=== PATIENT | female | born 1970 | race Caucasian/White ===

== ENCOUNTER 2016-07-31 18:14 | Emergency (ER) | payer BC, OTHER ==
[2016-07-31] MEDS ORDERED: PENICILLIN G BENZATHINE 600,000 UNIT/ML SYRINGE IM STA (19:37)
== END 2016-07-31 20:10 | disposition home or self-care (01) ==
DX: J02.9 Acute pharyngitis, unspecified (principal); J45.909 Unspecified asthma, uncomplicated; F17.200 Nicotine dependence, unspecified, uncomplicated; I11.0 Hypertensive heart disease with heart failure; I50.9 Heart failure, unspecified; E11.9 Type 2 diabetes mellitus without complications

== ENCOUNTER 2016-08-08 09:26 | Emergency (ER) | payer BC, OTHER ==
[2016-08-08] MEDS ORDERED: HYDROmorphone 1 MG/ML SYRINGE IM STA ×2 (10:21→11:56)
[2016-08-08] MEDS ORDERED: KETOROLAC 30 MG/ML VIAL IM STA (10:22)
[2016-08-08] MEDS ORDERED: DEXAMETHASONE 10 MG/ML VIAL PO STA (10:22)
[2016-08-08] MEDS ORDERED: ALBUTEROL NEB 2.5 MG/3 ML INH STA (10:22)
[2016-08-08] MEDS ORDERED: PROMETHAZINE 25 MG/1 ML VIAL IM STA ×2 (10:22→11:56)
[2016-08-08] MEDS ORDERED: HYDROmorphone 1 MG/ML SYRINGE ONE ×2 (10:28→12:04)
[2016-08-08] MEDS ORDERED: DEXAMETHASONE 10 MG/ML VIAL ONE (10:28)
[2016-08-08] MEDS ORDERED: CHERRY SYRUP 10 ML UDC PO ONE (10:28)
[2016-08-08] MEDS ORDERED: PROMETHAZINE 25 MG/1 ML VIAL ONE ×2 (10:28→12:04)
[2016-08-08] MEDS ORDERED: KETOROLAC 30 MG/ML VIAL ONE (10:28)
[2016-08-08] MEDS ORDERED: ALBUTEROL NEB 2.5 MG/3 ML INH ONE (10:31)
[2016-08-08] MEDS ORDERED: CEPHALEXIN 250 MG CAPSULE PO STA (11:32)
[2016-08-08] MEDS ORDERED: CEPHALEXIN 250 MG CAPSULE PO ONE (11:35)
[2016-08-08] MEDS ORDERED: ONDANSETRON ODT 4 MG TABLET TL STA (11:56)
[2016-08-08] MEDS ORDERED: MAG HYDROX/AL HYDROX/SIMETH 30 ML UDC PO STA (11:56)
[2016-08-08] MEDS ORDERED: ONDANSETRON ODT 4 MG TABLET ONE (12:04)
[2016-08-08] MEDS ORDERED: MAG HYDROX/AL HYDROX/SIMETH 30 ML UDC ONE (12:04)
[2016-08-08] MEDS ORDERED: HYDROcod/ACETAM 5/325 MG TABLET PO STA (12:47)
[2016-08-08] MEDS ORDERED: HYDROcod/ACETAM 5/325 MG TABLET ONE (13:09)
== END 2016-08-08 13:15 | disposition home or self-care (01) ==
DX: J02.0 Streptococcal pharyngitis (principal); J06.9 Acute upper respiratory infection, unspecified; M79.1 Myalgia; R10.30 Lower abdominal pain, unspecified; E11.9 Type 2 diabetes mellitus without complications; J45.909 Unspecified asthma, uncomplicated; F17.200 Nicotine dependence, unspecified, uncomplicated
CPT/HCPCS: 94640; 96372; 99283; 99284; A9270; J1170; J7613; Q0162

== ENCOUNTER 2016-08-15 | Outpatient (CLI) | payer BC, OTHER | END 2016-08-15 12:26 | disposition critical access hospital (66) | CPT/HCPCS: A0425; A0429 ==

== ENCOUNTER 2016-08-15 12:39 | Emergency (ER) | payer BC, OTHER ==
[2016-08-15] MEDS ORDERED: KETOROLAC 60 MG/2 ML VIAL IVP STA (12:45)
[2016-08-15] MEDS ORDERED: IPRATROPIUM/ALBUTEROL 3 ML NEB INH STA (12:45)
[2016-08-15] MEDS ORDERED: IPRATROPIUM/ALBUTEROL 3 ML NEB INH ONE (12:54)
[2016-08-15] MEDS ORDERED: KETOROLAC 30 MG/ML VIAL ONE (13:15)
== END 2016-08-15 14:07 | disposition home or self-care (01) ==
DX: J02.9 Acute pharyngitis, unspecified (principal); B34.9 Viral infection, unspecified; R03.0 Elevated blood-pressure reading, without diagnosis of hypertension; J45.909 Unspecified asthma, uncomplicated; F17.200 Nicotine dependence, unspecified, uncomplicated; C94.6 Myelodysplastic disease, not elsewhere classified; E11.9 Type 2 diabetes mellitus without complications
CPT/HCPCS: 36415; 80053; 81003; 83690; 85025; 87070; 87430; 94640; 96374; 99283; J7620

== ENCOUNTER 2016-08-16 01:26 | Emergency (ER) | payer BC, OTHER ==
[2016-08-16] MEDS ORDERED: HYDROmorphone 1 MG/ML SYRINGE IVP STA ×2 (02:08→03:45)
[2016-08-16] MEDS ORDERED: SODIUM CHLORIDE 0.9% 1,000 ML IV STA (02:08)
[2016-08-16] MEDS ORDERED: HYDROmorphone 1 MG/ML SYRINGE ONE ×2 (02:27→03:44)
[2016-08-16] MEDS ORDERED: ONDANSETRON 4 MG/2 ML VIAL ONE (02:51)
[2016-08-16] MEDS ORDERED: ONDANSETRON 4 MG/2 ML VIAL IVP STA (02:58)
[2016-08-16] MEDS ORDERED: IOPAMIDOL-300 100 ML VIAL IVP ONE (03:21)
== END 2016-08-16 04:20 | disposition home or self-care (01) ==
DX: K92.1 Melena (principal); R10.9 Unspecified abdominal pain; E11.9 Type 2 diabetes mellitus without complications; F17.200 Nicotine dependence, unspecified, uncomplicated
CPT/HCPCS: 36415; 74177; 80053; 82150; 83690; 85025; 85610; 85730; 96361; 96374; 96375; 96376; 99284; J1170; Q9967

== ENCOUNTER 2016-11-08 08:22 | Emergency (ER) | payer BC, OTHER ==
[2016-11-08] MEDS ORDERED: KETOROLAC 60 MG/2 ML VIAL IVP STA (09:02)
[2016-11-08] MEDS ORDERED: SODIUM CHLORIDE 0.9% 1,000 ML IV ONE (09:02)
[2016-11-08] MEDS ORDERED: DEXAMETHASONE 10 MG/ML VIAL IVP STA (09:02)
[2016-11-08] MEDS ORDERED: DEXAMETHASONE 10 MG/ML VIAL ONE (09:11)
[2016-11-08] MEDS ORDERED: KETOROLAC 30 MG/ML VIAL ONE (09:11)
[2016-11-08] MEDS ORDERED: CHERRY SYRUP 10 ML UDC PO ONE (09:11)
[2016-11-08] MEDS ORDERED: ONDANSETRON 4 MG/2 ML VIAL IVP STA (11:00)
[2016-11-08] MEDS ORDERED: ONDANSETRON 4 MG/2 ML VIAL ONE (11:01)
== END 2016-11-08 12:17 | disposition home or self-care (01) ==
DX: S39.011A Strain of muscle, fascia and tendon of abdomen, initial encounter (principal); X50.0XXA Overexertion from strenuous movement or load, initial encounter; H66.001 Acute suppurative otitis media without spontaneous rupture of ear drum, right ear; I50.9 Heart failure, unspecified; J45.909 Unspecified asthma, uncomplicated; E11.9 Type 2 diabetes mellitus without complications; K21.9 Gastro-esophageal reflux disease without esophagitis; F17.200 Nicotine dependence, unspecified, uncomplicated
CPT/HCPCS: 36415; 71020; 80053; 81003; 83690; 83880; 84484; 85025; 96374; 96375; 99283; 99284; A9270

== ENCOUNTER 2017-03-23 21:44 | Emergency (ER) | payer BC, OTHER ==
[2017-03-23] MEDS ORDERED: IPRATROPIUM/ALBUTEROL 3 ML NEB INH STA (22:07)
[2017-03-23] MEDS ORDERED: IPRATROPIUM/ALBUTEROL 3 ML NEB INH ONE (22:16)
--- NOTE | 2017-03-23 22:52 | ED Physician Documentation ---
PD HPI DYSPNEA - Stated complaint Stated Complaint: SOA - Chief complaint Chief Complaint: Resp - History obtained from History obtained from: Patient - History of Present Illness Timing - onset: How many days ago (3 or 4 days.) Timing - details: Waxing and waning Improved by: Inhaler/neb Worsened by: Coughing Associated symptoms: Cough (Scant sputum), Chest pain / discomfort (soreness). No: Fever Similar symptoms before: Diagnosis (Asthma/COPD) - Treatment prior to arrival Treatment prior to arrival: Albuterol inhaler with only minimal improvement. - Additional information Additional information: The patient is a 47-year-old female with history of asthma/COPD, who presents with shortness of breath that has been waxing and waning for the past 3 or 4 days. She reports cough that is productive of scant sputum. She denies fever, nausea or vomiting. She has been using albuterol inhaler with minimal temporary improvement. She reports an associated aching in her chest. She has a history of similar symptoms in the past. She continues to smoke cigarettes as well as marijuana. In addition to albuterol her medications include Singulair and Mireya. Review of Systems Constitutional: denies: Fever Ears: denies: Tinnitus/ringing Nose: denies: Congestion Throat: denies: Sore throat Cardiac: reports: Chest pain / pressure (Discomfort/tightness.). 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 : None HEENT: None Psych: None Musculoskeletal: Other Derm: None - Past Surgical History Past Surgical History: Yes General: Cholecystectomy /CARD SCRAPER: section, Hysterectomy HEENT: Tonsil/Adenoidectomy - Present Medications Home Medications: Ambulatory Orders Medication Instructions Recorded Confirmed Medical Marijuana PRN 05/05/15 09/14/15 Albuterol Sulfate [Proair Hfa 2 puffs IH QID #1 hfa.aer.ad 08/08/16 08/16/16 Inhaler] Azithromycin [Zithromax] 250 mg PO DAILY #6 tablet 11/08/16 HYDROcod/ACETAM 5/325 [[place] 5/325] 1 - 2 ea PO Q6H PRN #15 tablet 11/08/16 Prednisone 30 mg PO DAILY #15 tablet 03/24/17 - Allergies Allergies/Adverse Reactions: Allergies Allergy/AdvReac Type Severity Reaction Status Date / Time No Known Drug Allergies Allergy Verified 08/16/16 01:32 - Social History Does the pt smoke?: Yes Smoking Status: Current every day smoker Does the pt drink ETOH?: No Does the pt have substance abuse?: No Substance Use and Type: Marijuana - Immunizations Immunizations are current?: Yes - POLST Patient has POLST: No PD ED PE NORMAL - Vitals Vital signs reviewed: Yes (Mild hypertension initially.) - General General: Alert and oriented X 3, Other (Overweight) - HEENT HEENT: Atraumatic, Moist mucous membranes, Pharynx benign - Neck Neck: No adenopathy, No JVD - Cardiac Cardiac: RRR, No murmur - Respiratory Respiratory: Other (Faint expiratory wheezes bilaterally.) - Abdomen Abdomen: Soft, Non tender - Back Back: No CVA TTP - Derm Derm: No rash - Extremities Extremities: No edema, No calf tenderness / cord - Neuro Neuro: Alert and oriented X 3, No motor deficit, Normal speech Results - Vitals Vitals: Vital Signs - 24 hr 03/23/17 03/23/17 03/23/17 21:50 22:15 22:20 Temperature 36.9 C 37.0 C Heart Rate 101 H 87 88 Respiratory 24 16 16 Rate Blood Pressure 142/93 H 116/79 O2 Saturation 96 96 03/23/17 03/23/17 03/24/17 22:42 23:36 00:22 Temperature 36.9 C Heart Rate 87 83 71 Respiratory 22 16 16 Rate Blood Pressure 120/68 122/72 O2 Saturation 96 96 03/24/17 01:09 Temperature 36.9 C Heart Rate 88 Respiratory 14 Rate Blood Pressure 116/63 O2 Saturation 95 Oxygen O2 Source Room air - EKG (time done) 22:42 Rate: Rate (enter#) (82) Rhythm: NSR Intervals: RBBB QRS: LVH Ischemia: No: ST elevation c/w ischemia Compare to prior EKG: Unchanged from prior EKG Computer interpretation: Agree with computer - Rads (name of study) 2-view CXR Radiology: Prelim report reviewed, EMP read contemporaneously, See rad report ( Negative chest.) PD MEDICAL DECISION MAKING - ED course Complexity details: reviewed old records, reviewed results, re-evaluated patient , considered differential, d/w patient, d/w family ED course: The patient's presentation is most consistent with acute exacerbation of COPD/ asthma. Chest x-ray reveals no evidence of pneumonia, and I doubt pulmonary embolus. Her presentation does not suggest congestive heart failure or myocardial ischemia. Treatment in the emergency department included administration of DuoNeb nebulizer. Her symptoms only minimally improved, and she continued to have faint expiratory wheezes. Xopenex nebulizer treatment and oral dexamethasone 10 mg were administered. Percocet 1 tablet was administered orally. The patient's symptoms did improve with the above treatment, and on reevaluation and her wheezing has resolved. She is being discharged with prescription for prednisone. She has albuterol inhaler and spacer device at home. I do not think antibiotics are clinically indicated, and discussed this with her. I discussed with her and her family the expected course of illness, symptomatic treatment and outpatient follow-up, as well as potentially worrisome signs or symptoms that should prompt reevaluation in the emergency department. I also discussed with her the importance of smoking cessation. Departure - Departure Disposition: 01 Home, Self Care Clinical Impression: COPD with acute exacerbation Condition: Stable Instructions: ED COPD Flare Follow-Up: [facility] [Provider Group] Prescriptions: Prednisone 30 mg PO DAILY #15 tablet Comments: Try to stop smoking cigarettes. Continue your albuterol inhaler as previously prescribed. Take prednisone daily for the next 5 days as prescribed. Follow-up with your primary physician within 1 week. Call to schedule an appointment. Return to the emergency department if you develop increasing difficulty breathing, or otherwise worsening symptoms. Discharge Date/Time: 03/24/17 01:13
--- NOTE | 2017-03-23 23:11 | XRAY Preliminary Report ---
Exam: XR Chest 2 View PA/LAT Negative chest SITE ID: [id number]
--- NOTE | 2017-03-23 23:22 | XRAY Report ---
EXAM: CHEST RADIOGRAPHY EXAM DATE: 03/23/2017 10:44 PM. CLINICAL HISTORY: Dyspnea. COMPARISON: 11/08/2016, CT 01/01/2013. TECHNIQUE: 2 views. FINDINGS: Lungs/Pleura: No focal opacities evident. No pleural effusion. No pneumothorax. Normal volumes. Mediastinum: Heart and mediastinal contours are unremarkable. Other: None. IMPRESSION: Stable negative 2-view chest radiography. [facility] Referring Provider Line: [phone] SITE ID: [id number]
[2017-03-23] MEDS ORDERED: oxyCOD/ACETAMIN 5 MG/325 MG TABLET PO STA (23:47)
[2017-03-23] MEDS ORDERED: oxyCOD/ACETAMIN 5 MG/325 MG TABLET PO ONE (23:57)
[2017-03-24] MEDS ORDERED: LEVALBUTEROL 1.25 MG INH STA (00:13)
[2017-03-24] MEDS ORDERED: DEXAMETHASONE 10 MG/ML VIAL PO STA (00:13)
[2017-03-24] MEDS ORDERED: DEXAMETHASONE 10 MG/ML VIAL ONE (00:21)
[2017-03-24] MEDS ORDERED: LEVALBUTEROL 1.25 MG INH ONE (00:23)
[2017-03-24] MEDS ORDERED: SODIUM CHLORIDE INHALATION 3 ML NEB ONE (00:24)
[2017-03-24 01:09] VITALS: BP 116/63
== END 2017-03-24 01:13 | disposition home or self-care (01) ==
LOC: ED 21:44
DX: J44.1 Chronic obstructive pulmonary disease with (acute) exacerbation (principal); I45.10 Unspecified right bundle-branch block; E11.9 Type 2 diabetes mellitus without complications; F17.200 Nicotine dependence, unspecified, uncomplicated
CPT/HCPCS: 71020; 93005; 94640; 99283; 99284; A9270; J7620

== ENCOUNTER 2017-07-07 21:34 | Emergency (ER) | payer BC, OTHER ==
--- NOTE | 2017-07-07 21:53 | ED Physician Documentation ---
PD HPI ABD PAIN - Stated complaint Stated Complaint: SIDE PX - Chief complaint Chief Complaint: Abd Pain - History obtained from History obtained from: Patient - History of Present Illness Timing - onset: How many hours ago (6) Timing - duration: Hours Timing - details: Abrupt onset, Waxing and waning Pain level now: 9 Quality: Pain Location: RLQ Radiation: Right flank Worsened by: Palpation. No: Eating Associated symptoms: No: Fever, Nausea, Vomiting, Diarrhea, Constipation Similar symptoms before: Diagnosis (some similarity to previous episode of "kidney infection") Recently seen: Not recently seen - Additional information Additional information: c/o right flank pain x 6 hours although some milder discomfort and bloating sensation last night. Review of Systems Constitutional: denies: Fever, Chills, Sweats Cardiac: reports: Reviewed and negative Respiratory: reports: Reviewed and negative GI: reports: Abdominal Pain. 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 : None HEENT: None Psych: None Musculoskeletal: Other Derm: None - Past Surgical History Past Surgical History: Yes General: Cholecystectomy /SURGICAL GARMENT ASSEMBLY SUPERVISOR: section, Hysterectomy HEENT: Tonsil/Adenoidectomy - Present Medications Home Medications: Ambulatory Orders Medication Instructions Recorded Confirmed Medical Marijuana PRN 05/05/15 09/14/15 Albuterol Sulfate [Proair Hfa 2 puffs IH QID #1 hfa.aer.ad 08/08/16 08/16/16 Inhaler] Azithromycin [Zithromax] 250 mg PO DAILY #6 tablet 11/08/16 HYDROcod/ACETAM 5/325 [[place] 5/325] 1 - 2 ea PO Q6H PRN #15 tablet 11/08/16 predniSONE [Prednisone] 30 mg PO DAILY #15 tablet 03/24/17 Naproxen 500 mg PO BID PRN #20 tablet 07/08/17 oxyCODONE/ACET 5/325 [Percocet 5 1 - 2 each PO Q6H PRN #14 tablet 07/08/17 mg/325 mg] - Allergies Allergies/Adverse Reactions: Allergies Allergy/AdvReac Type Severity Reaction Status Date / Time No Known Drug Allergies Allergy Verified 07/07/17 21:46 - Social History Does the pt smoke?: Yes Smoking Status: Current every day smoker Does the pt drink ETOH?: No Does the pt have substance abuse?: No - Immunizations Immunizations are current?: Yes - POLST Patient has POLST: No PD ED PE NORMAL - Vitals Vital signs reviewed: Yes - General General: Alert and oriented X 3, Well developed/nourished, Other (appears to be in painful distress) - HEENT HEENT: Moist mucous membranes - Neck Neck: Supple, no meningeal sign - Cardiac Cardiac: RRR, No murmur - Respiratory Respiratory: No respiratory distress, Clear bilaterally - Abdomen Abdomen: Soft, Non distended, Other (mild RLQ and right hypogastric pain without rebound or guarding) - Derm Derm: Normal color, Warm and dry - Extremities Extremities: No edema Results - Vitals Vitals: Vital Signs - 24 hr 07/07/17 07/07/17 07/08/17 21:35 23:15 01:45 Temperature 36.9 C 36.4 C L Heart Rate 87 84 77 Respiratory 20 18 16 Rate Blood Pressure 147/97 H 134/72 H 127/79 O2 Saturation 98 98 96 Oxygen O2 Source Room air - Labs Labs: Laboratory Tests 07/07/17 07/07/17 07/07/17 22:20 22:20 22:20 WBC 15.1 H RBC 5.51 H Hgb 16.9 H Hct 49.9 H MCV 90.6 MCH 30.7 MCHC 33.9 RDW 13.6 Plt Count 277 MPV 7.3 L Neut # 6.9 H Lymph # 6.6 H [place] # 1.3 H Eos # 0.2 Baso # 0.1 Absolute Nucleated RBC 0.01 Nucleated RBC % 0.1 Sodium 138 Potassium 3.7 Chloride 102 Carbon Dioxide 24 Anion Gap 12.0 BUN 15 Creatinine 0.6 Estimated GFR (MDRD) 108 Glucose 98 Calcium 9.5 Total Bilirubin 0.3 AST 15 ALT 20 Alkaline Phosphatase 60 Total Protein 7.4 Albumin 4.1 Globulin 3.3 Albumin/Globulin Ratio 1.2 Lipase 48 Urine Color YELLOW Urine Clarity CLEAR Urine pH 5.5 Ur Specific [place] >=1.030 H Urine Protein NEGATIVE Urine Glucose (UA) NEGATIVE Urine Ketones NEGATIVE Urine Occult Blood NEGATIVE Urine Nitrite NEGATIVE Urine Bilirubin NEGATIVE Urine Urobilinogen 0.2 (NORMAL) Ur Leukocyte Esterase NEGATIVE Ur Microscopic Review NOT INDICATED Urine Culture Comments NOT INDICATED - Rads (name of study) CT A/P Radiology: Prelim report reviewed, See rad report PD MEDICAL DECISION MAKING - ED course Complexity details: reviewed old records, reviewed results, re-evaluated patient , considered differential, d/w patient Departure - Departure Disposition: 01 Home, Self Care Clinical Impression: Abdominal pain of unknown cause Condition: Good Instructions: ED Abdominal Pain Unkn Cause Follow-Up: [facility] [Provider Group] [facility] [Provider Group] Prescriptions: Naproxen 500 mg PO BID PRN #20 tablet PRN Reason: Pain oxyCODONE/ACET 5/325 [Percocet 5 mg/325 mg] 1 - 2 each PO Q6H PRN #14 tablet PRN Reason: Pain Discharge Date/Time: 07/08/17 01:45
[2017-07-07] MEDS ORDERED: HYDROmorphone 1 MG/ML SYRINGE IVP STA ×2 (22:08→23:32)
[2017-07-07] MEDS ORDERED: SODIUM CHLORIDE 0.9% 1,000 ML IV STA (22:08)
[2017-07-07 22:26] LABS: BASOPHILS # (AUTO) 0.1 10^3/uL (0.0-0.1); BASOPHILS % (AUTO) 0.6 %; EOSINOPHILS # (AUTO) 0.2 10^3/uL (0.0-0.7); EOSINOPHILS % (AUTO) 1.5 %; HCT - HEMATOCRIT 49.9 % (37.0-47.0); HGB - HEMOGLOBIN 16.9 g/dL (12.0-16.0); LYMPHOCYTES # (AUTO) 6.6 10^3/uL (1.5-3.5); LYMPHOCYTES % (AUTO) 43.7 %; MEAN CORPUSCULAR HEMOGLOBIN 30.7 pg (27.0-31.0); MEAN CORPUSCULAR HGB CONC 33.9 g/dL (32.0-36.0); MEAN CORPUSCULAR VOLUME 90.6 fL (81.0-99.0); MEAN PLATELET VOLUME 7.3 fL (7.9-10.8); MONOCYTES # (AUTO) 1.3 10^3/uL (0.0-1.0); MONOCYTES % (AUTO) 8.7 %; NEUTROPHILS # (AUTO) 6.9 10^3/uL (1.5-6.6); NEUTROPHILS % (AUTO) 45.5 %; NUCLEATED RED BLOOD CELLS AUTO 0.1 /100WBC; RED BLOOD COUNT 5.51 10^6/uL (4.20-5.40); RED CELL DISTRIBUTION WIDTH 13.6 % (12.0-15.0); UNCORRECTED WHITE BLOOD COUNT 15.1 x10^3/uL; WHITE BLOOD COUNT 15.1 x10^3/uL (4.8-10.8)
[2017-07-07 22:34] LABS: BILIRUBIN,URINE NEGATIVE (NEGATIVE); PH,URINE 5.5 PH (5.0-7.5)
[2017-07-07 22:39] LABS: ALBUMIN/GLOBULIN RATIO 1.2 (1.0-2.2); BILIRUBIN,TOTAL 0.3 mg/dL (0.2-1.0); CALCIUM 9.5 mg/dL (8.5-10.3); CREATININE 0.6 mg/dL (0.4-1.0); POTASSIUM 3.7 mmol/L (3.5-5.0); TOTAL PROTEIN 7.4 g/dL (6.7-8.2); UA CHARGE (STRIP ONLY) YES; UR CULTURE IF IND NOT INDICATED
[2017-07-07] MEDS ORDERED: IOPAMIDOL-300 100 ML VIAL ONE (22:54)
[2017-07-07] MEDS ORDERED: IOPAMIDOL-300 100 ML VIAL IVP ONE (23:13)
--- NOTE | 2017-07-07 23:45 | CT Preliminary Report ---
Exam: CT ABDOMEN/PELVIS W/ IMPRESSION: 1. Normal appendix, with no cause for right lower quadrant pain identified. 2. Fat-containing ventral hernia noted below the umbilicus. 3. Cholecystectomy and hysterectomy. 4. Diverticulosis without diverticulitis. [facility] SITE ID: [id number]
--- NOTE | 2017-07-07 23:48 | CT Report ---
EXAM: CT ABDOMEN AND PELVIS EXAM DATE: 07/07/2017 11:26 PM. CLINICAL HISTORY: RLQ pain since yesterday. COMPARISONS: 08/16/2016. TECHNIQUE: Routine helical CT imaging was performed through the abdomen and pelvis. IV contrast: 100 cc of Isovue-300. Enteric contrast: No. Reconstructions: Coronal and sagittal. In accordance with CT protocol optimization, one or more of the following dose reduction techniques w ere utilized for this exam: automated exposure control, adjustment of mA and/or KV based on patient s ize, or use of iterative reconstructive technique. FINDINGS: Lung Bases: Unremarkable. Liver: Normal. No masses. Gallbladder/Bile Ducts: Cholecystectomy. No ductal dilatation. Spleen: Normal. Pancreas: Normal. Adrenal Glands: Normal. Kidneys: Normal. No masses or hydronephrosis. Peritoneal Cavity/Bowel: Diverticulosis. Mobile cecum. No free fluid, free air or adenopathy. No mass es or acute inflammatory process. The appendix is well visualized and normal. Pelvic Organs: Hysterectomy. Unremarkable bladder. Vasculature: No aortic aneurysm. Left IVC below the renal veins. Bones: No significant abnormality. Other: Fat-containing ventral hernia below the umbilicus. IMPRESSION: 1. Normal appendix, with no cause for right lower quadrant pain identified. 2. Fat-containing ventral hernia noted below the umbilicus. 3. Cholecystectomy and hysterectomy. 4. Diverticulosis without diverticulitis. [facility] Referring Provider Line: [phone] SITE ID: [id number]
[2017-07-08] MEDS ORDERED: oxyCODONE/ACET 5/325 Prepack 4 PO STA (01:25)
[2017-07-08] MEDS ORDERED: NAPROXEN 250 MG TABLET PO STA (01:25)
[2017-07-08 01:46] VITALS: BP 127/79
== END 2017-07-08 01:45 | disposition home or self-care (01) ==
LOC: ED 21:34
DX: R10.31 Right lower quadrant pain (principal); F17.200 Nicotine dependence, unspecified, uncomplicated
CPT/HCPCS: 36415; 74177; 80053; 81003; 83690; 85025; 96361; 96374; 96376; 99283; 99284; A9270; J1170; Q9967; 81001; 87086

== ENCOUNTER 2018-06-05 18:57 | Outpatient (CLI) | payer BC, OTHER | END 2018-06-05 18:58 | disposition critical access hospital (66) | LOC: EMS 18:57 | PROVIDERS: ATTEND Surgery | DX: R07.9 Chest pain, unspecified (principal) | CPT/HCPCS: A0425; A0427 ==

== ENCOUNTER 2018-06-05 19:15 | Emergency (ER) | payer BC, OTHER ==
[2018-06-05] MEDS ORDERED: SODIUM CHLORIDE 0.9% 1,000 ML IV ONE (19:26)
--- NOTE | 2018-06-05 20:25 | ED Physician Documentation ---
PD HPI ABD PAIN - Stated complaint Stated Complaint: LEFT SIDE FLANK PAIN - Chief complaint Chief Complaint: Abd Pain - History obtained from History obtained from: Patient - History of Present Illness Timing - onset: Yesterday Timing - duration: Days (2) Timing - details: Gradual onset, Still present, Waxing and waning Quality: Cramping, Aching, Pain Location: LLQ Radiation: Left flank Improved by: Position. No: Eating Worsened by: Moving, Position, Palpation. No: Eating, Breathing Associated symptoms: Nausea. No: Fever, Vomiting, Diarrhea, Constipation, Melena, Dysuria, Hematuria Similar symptoms before: Diagnosis (kidney stones in the past. No history of diverticulitis.) Review of Systems Constitutional: denies: Fever, Chills, Myalgias Nose: denies: Rhinorrhea / runny nose, Congestion Throat: denies: Sore throat Cardiac: denies: Chest pain / pressure Respiratory: denies: Dyspnea, Cough GI: reports: Abdominal Pain, Nausea. denies: Abdominal Swelling, Vomiting, Constipation, Diarrhea, Bloody / black stool : denies: Dysuria, Frequency, Hematuria, Discharge Skin: denies: Rash Musculoskeletal: reports: Back pain. denies: Neck pain Neurologic: reports: Generalized weakness. 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 : None, Kidney stones HEENT: None Psych: None Musculoskeletal: Other Derm: None Other Past Medical History: myeloproliferated disorder, ventroseptal disorder at - Past Surgical History Past Surgical History: Yes General: Cholecystectomy /DIRECTOR OF INSTRUMENTAL MUSIC: section, Hysterectomy HEENT: Tonsil/Adenoidectomy - Present Medications Home Medications: Ambulatory Orders Medication Instructions Recorded Confirmed Medical Marijuana PRN 05/05/15 09/14/15 Albuterol Sulfate [Proair Hfa 2 puffs IH QID #1 hfa.aer.ad 08/08/16 08/16/16 Inhaler] Azithromycin [Zithromax] 250 mg PO DAILY #6 tablet 11/08/16 HYDROcod/ACETAM 5/325 [[place] 5/325] 1 - 2 ea PO Q6H PRN #15 tablet 04/18/17 predniSONE [Prednisone] 30 mg PO DAILY #15 tablet 03/24/17 Naproxen 500 mg PO BID PRN #20 tablet 07/08/17 oxyCODONE/ACET 5/325 [Percocet 5 1 - 2 each PO Q6H PRN #14 tablet 07/08/17 mg/325 mg] Metronidazole [Flagyl] 500 mg PO BID #20 tablet 06/05/18 Naproxen 375 mg PO BID #20 tablet 06/05/18 Ondansetron Odt [Zofran] 4 mg TL Q6H PRN #10 tablet 06/05/18 Oxycodone HCl/Acetaminophen 1 - 2 each PO Q6H PRN #20 tablet 06/05/18 [Percocet 5-325 mg Tablet] - Allergies Allergies/Adverse Reactions: Allergies Allergy/AdvReac Type Severity Reaction Status Date / Time No Known Drug Allergies Allergy Verified 07/07/17 21:46 - Social History Does the pt smoke?: No Smoking Status: Former smoker Does the pt drink ETOH?: No Does the pt have substance abuse?: No - Immunizations Immunizations are current?: Yes - POLST Patient has POLST: No PD ED PE NORMAL - Vitals Vital signs reviewed: Yes - General General: Alert and oriented X 3, Well developed/nourished, Other (appears in pain and holding left abdomen. ) - HEENT HEENT: Pharynx benign - Neck Neck: Supple, no meningeal sign, No adenopathy - Cardiac Cardiac: RRR, No murmur - Respiratory Respiratory: Clear bilaterally - Abdomen Abdomen: Normal bowel sounds, Soft, Non distended, No organomegaly, Other (tender left mid abd (not really down low) and to lateral aspect. No rash nor sores of skin. Moderate left CVA tenderness. ) - Female Female : Deferred - Rectal Rectal: Deferred - Back Back: No spinal TTP - Derm Derm: Normal color, Warm and dry, No rash - Extremities Extremities: No tenderness to palpate, Normal ROM s pain, No edema - Neuro Neuro: Alert and oriented X 3, No motor deficit, Normal speech Results - Vitals Vitals: Oxygen O2 Source Room air - Labs Labs: Laboratory Tests 06/05/18 06/05/18 06/05/18 20:55 20:55 21:08 WBC 12.9 H RBC 5.24 Hgb 16.2 H Hct 47.3 H MCV 90.3 MCH 31.0 MCHC 34.3 RDW 13.1 Plt Count 278 MPV 7.5 L Neut # (Auto) Not Reportable Lymph # (Auto) Not Reportable [place] # (Auto) Not Reportable Eos # (Auto) Not Reportable Baso # (Auto) Not Reportable Absolute Nucleated RBC Not Reportable Total Counted 100 Band Neuts % (Manual) 0 Reactive Lymphs % (Man) 15 Abnorm Lymph % (Manual) 0 Nucleated RBC % Not Reportable Neutrophils # (Manual) 5.0 Lymphocytes # (Manual) 7.2 H Monocytes # (Manual) 0.4 Eosinophils # (Manual) 0.3 Basophils # (Manual) 0.0 Differential Comment MANUAL DIFFERENTIAL Platelet Estimate NORMAL (130-450,000) Platelet Morphology NORMAL APPEARANCE RBC Morph Micro Appear NORMAL APPEARANCE Sodium 141 Potassium 3.4 L Chloride 110 Carbon Dioxide 21 Anion Gap 10.0 BUN 7 Creatinine 0.6 Estimated GFR (MDRD) 108 Glucose 93 Calcium 8.6 Magnesium 1.9 Total Bilirubin 0.8 AST 15 ALT 17 Alkaline Phosphatase 58 Total Protein 6.9 Albumin 3.8 Globulin 3.1 Albumin/Globulin Ratio 1.2 Lipase 53 H Urine Color YELLOW Urine Clarity CLEAR Urine pH 6.0 Ur Specific [place] <=1.005 Urine Protein NEGATIVE Urine Glucose (UA) NEGATIVE Urine Ketones TRACE Urine Occult Blood NEGATIVE Urine Nitrite NEGATIVE Urine Bilirubin NEGATIVE Urine Urobilinogen 0.2 (NORMAL) Ur Leukocyte Esterase NEGATIVE Ur Microscopic Review NOT INDICATED Urine Culture Comments NOT INDICATED Urine HCG, Qual 06/05/18 21:08 WBC RBC Hgb Hct MCV MCH MCHC RDW Plt Count MPV Neut # (Auto) Lymph # (Auto) [place] # (Auto) Eos # (Auto) Baso # (Auto) Absolute Nucleated RBC Total Counted Band Neuts % (Manual) Reactive Lymphs % (Man) Abnorm Lymph % (Manual) Nucleated RBC % Neutrophils # (Manual) Lymphocytes # (Manual) Monocytes # (Manual) Eosinophils # (Manual) Basophils # (Manual) Differential Comment Platelet Estimate Platelet Morphology RBC Morph Micro Appear Sodium Potassium Chloride Carbon Dioxide Anion Gap BUN Creatinine Estimated GFR (MDRD) Glucose Calcium Magnesium Total Bilirubin AST ALT Alkaline Phosphatase Total Protein Albumin Globulin Albumin/Globulin Ratio Lipase Urine Color Urine Clarity Urine pH Ur Specific [place] <=1.005 Urine Protein Urine Glucose (UA) Urine Ketones Urine Occult Blood Urine Nitrite Urine Bilirubin Urine Urobilinogen Ur Leukocyte Esterase Ur Microscopic Review Urine Culture Comments Urine HCG, Qual NEGATIVE - Rads (name of study) abd/pelvic CT Radiology: Prelim report reviewed (no acute process seen to identify cause of pain. Some diverticula.) PD MEDICAL DECISION MAKING - ED course Complexity details: reviewed results (no findings on CT for cause of the pain. There are diverticula so may be having some inflammation of that, without overt diverticulitis. ), re-evaluated patient, considered differential, d/w patient Departure - Departure Disposition: Home, Self Care Clinical Impression: Left sided abdominal pain Condition: Stable Record reviewed to determine appropriate education?: Yes Instructions: ED Abdominal Pain Unkn Cause Follow-Up: DANIELLE ANGULO PA-C [Primary Care Provider] - Prescriptions: Metronidazole [Flagyl] 500 mg PO BID #20 tablet Naproxen 375 mg PO BID #20 tablet Ondansetron Odt [Zofran] 4 mg TL Q6H PRN #10 tablet PRN Reason: Nausea / Vomiting Oxycodone HCl/Acetaminophen [Percocet 5-325 mg Tablet] 1 - 2 each PO Q6H PRN #20 tablet PRN Reason: pain Comments: There is no obvious cause on lab tests or urine test or CT scan. No stones or kidney infection. There is no obvious obstruction. There is no obvious abscess. One consideration would be an early diverticulitis and that may not show up on the CT scan. We could treat along that way with anti-inflammatory antibiotic and pain medicine and see how you do over the next day or 2. Zofran if needed for nausea. Small frequent fluids and stay well-hydrated. Continue your other usual medications. Discharge Date/Time: 06/05/18 23:29
[2018-06-05] MEDS ORDERED: HYDROmorphone 1 MG/ML CARPUJECT IVP STA ×2 (20:41→22:06)
[2018-06-05] MEDS ORDERED: ONDANSETRON 4 MG/2 ML VIAL IVP STA ×2 (20:41→23:02)
[2018-06-05] MEDS ORDERED: KETOROLAC 60 MG/2 ML VIAL IVP STA (20:41)
[2018-06-05 21:01] LABS: BASOPHILS % (AUTO) 0.7 %; EOSINOPHILS % (AUTO) 1.1 %; HGB - HEMOGLOBIN 16.2 g/dL (12.0-16.0); LYMPHOCYTES % (AUTO) 44.3 %; MEAN CORPUSCULAR HGB CONC 34.3 g/dL (32.0-36.0); MEAN CORPUSCULAR VOLUME 90.3 fL (81.0-99.0); MEAN PLATELET VOLUME 7.5 fL (7.9-10.8); NEUTROPHILS % (AUTO) 45.9 %; PLT - PLATELET COUNT 278 10^3/uL (130-450); RED BLOOD COUNT 5.24 10^6/uL (4.20-5.40); RED CELL DISTRIBUTION WIDTH 13.1 % (12.0-15.0); WHITE BLOOD COUNT 12.9 x10^3/uL (4.8-10.8)
[2018-06-05 21:12] LABS: ALBUMIN 3.8 g/dL (3.2-5.5); ALBUMIN/GLOBULIN RATIO 1.2 (1.0-2.2); BILIRUBIN,TOTAL 0.8 mg/dL (0.2-1.0); CALCIUM 8.6 mg/dL (8.5-10.3); CREATININE 0.6 mg/dL (0.4-1.0); MAGNESIUM 1.9 mg/dL (1.7-2.8); TOTAL PROTEIN 6.9 g/dL (6.7-8.2)
[2018-06-05 21:17] LABS: ABNORMAL LYMPHS % (MANUAL) 0 %; BAND NEUTROPHILS % (MANUAL) 0 %
[2018-06-05 21:22] LABS: BILIRUBIN,URINE NEGATIVE (NEGATIVE); GLUCOSE, URINE (UA) NEGATIVE (NEGATIVE); KETONES,URINE (UA) TRACE mg/dL (NEGATIVE); LEUKOCYTE ESTERASE, URINE NEGATIVE (NEGATIVE); NITRITE,URINE NEGATIVE (NEGATIVE); OCCULT BLOOD,URINE NEGATIVE (NEGATIVE); PROTEIN,URINE NEGATIVE (NEGATIVE); UROBILINOGEN,URINE 0.2 (NORMAL) E.U./dL (NORMAL)
[2018-06-05 21:26] LABS: CLARITY,URINE CLEAR (CLEAR); HCG UR QUAL NEGATIVE
[2018-06-05 21:32] LABS: EOSINOPHILS # (MANUAL) 0.3 10^3/uL (0-0.7); LYMPHOCYTES # (MANUAL) 7.2 10^3/uL (1.5-3.5); LYMPHOCYTES % (MANUAL) 41 %; MONOCYTES # (MANUAL) 0.4 10^3/uL (0.0-1.0); NEUTROPHILS % (MANUAL) 39 %
[2018-06-05 21:35] LABS: DIFFERENTIAL COMMENT MANUAL DIFFERENTIAL; PLATELET ESTIMATE, MANUAL NORMAL (130-450,000) (NORMAL); PLATELET MORPHOLOGY NORMAL APPEARANCE (NORMAL); RBC MORPHOLOGY (MULTIPLE) NORMAL APPEARANCE (NORMAL)
--- NOTE | 2018-06-05 22:01 | CT Report ---
Reason: left flank and abd pain today Procedure Date: 06/05/2018 Accession Number: [id number] / [id number] Procedure: CT - KUB CPT Code: FULL RESULT: EXAM: CT ABDOMEN AND PELVIS (CT KUB) EXAM DATE: 06/05/2018 09:30 PM. CLINICAL HISTORY: Left flank and abdominal pain today. COMPARISONS: ABDOMEN/PELVIS W/ 07/07/2017 11:12 PM. TECHNIQUE: Routine axial helical CT imaging was performed through the abdomen and pelvis without IV contrast. Reconstructions: Coronal and sagittal. In accordance with CT protocol optimization, one or more of the following dose reduction techniques were utilized for this exam: automated exposure control, adjustment of mA and/or KV based on patient size, or use of iterative reconstructive technique. FINDINGS: Lung Bases: Unremarkable. Right Kidney/Ureter: No stones, hydronephrosis, or hydroureter. No perinephric fat stranding. Left Kidney/Ureter: No stones, hydronephrosis, or hydroureter. No perinephric fat stranding. Other Solid Organs: Noncontrast images of the solid organs are grossly unremarkable. Gallbladder/Bile Ducts: Post cholecystectomy. No biliary ductal dilatation. Peritoneal Cavity: Mild sigmoid diverticulosis. The bowel otherwise is grossly unremarkable, without evident focal wall thickening or adjacent mesenteric fat stranding to suggest acute inflammatory process, or evidence of bowel obstruction. The appendix is normal. No free fluid, pneumoperitoneum, or drew adenopathy. Pelvic Organs: No bladder stones or wall thickening. Post hysterectomy the right ovary is not seen, possibly also surgically absent. Unremarkable noncontrast appearance of the left ovary. Vasculature: Mild atherosclerotic calcifications within the aorta and iliac arteries. Bones: Mild right convex curvature centered at L3-L4. Mild multilevel degenerative disk disease. No acute bony abnormality. Other: Unchanged small fat-containing umbilical hernia and small to moderate sized fat-containing infraumbilical midline hernia. IMPRESSION: 1. No calculi or evidence of obstruction along the genitourinary tracts. Within the limits of noncontrast examination, no alternate acute process identified to explain flank pain. 2. Mild sigmoid diverticulosis without noncontrast CT evidence for acute diverticulitis. [facility]
[2018-06-05] MEDS ORDERED: oxyCODONE/ACET 5/325 Prepack 4 PO STA (23:04)
[2018-06-05 23:13] VITALS: BP 152/79
== END 2018-06-05 23:29 | disposition home or self-care (01) ==
LOC: EDUNIT# → ED 19:15
DX: R10.9 Unspecified abdominal pain (principal); I50.9 Heart failure, unspecified; E11.9 Type 2 diabetes mellitus without complications; Q21.0 Ventricular septal defect; Z85.6 Personal history of leukemia; Z87.442 Personal history of urinary calculi
CPT/HCPCS: 36415; 74176; 80053; 81003; 81025; 83690; 83735; 85025; 96361; 96374; 96375; 96376; 99283; J1170; 81001; 87086

== ENCOUNTER 2018-07-04 14:16 | Emergency (ER) | payer BC, OTHER ==
[2018-07-04] MEDS ORDERED: DEXAMETHASONE 10 MG/ML VIAL PO STA (14:42)
[2018-07-04] MEDS ORDERED: cephALEXin 250 MG CAPSULE PO STA (14:42)
[2018-07-04] MEDS ORDERED: HYDROcod/ACETAM 5/325 MG TABLET PO STA (14:42)
--- NOTE | 2018-07-04 14:59 | ED Physician Documentation ---
PD HPI URI - Stated complaint Stated Complaint: THROAT PX - Chief complaint Chief Complaint: Heent - History obtained from History obtained from: Patient - History of Present Illness Timing - onset: How many days ago (2-3) Timing duration: Days Timing details: Abrupt onset, Still present Associated symptoms: Chills, Sore throat, Swollen nodes. No: Fever, Nasal congestion, Dry cough, NVD Contributing factors: No: Sick contact Improves by: Rest Worsened by: Other (swallowing) Similar symptoms before: Has not had sx before Recently seen: Not recently seen Review of Systems Constitutional: reports: Chills, Myalgias. 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 : None, Kidney stones HEENT: None Psych: None Musculoskeletal: Other Derm: None Other Past Medical History: Myeloproliferative disorder - Past Surgical History Past Surgical History: Yes General: Cholecystectomy /BRINE PLANT OPERATOR: section, Hysterectomy HEENT: Tonsil/Adenoidectomy - Present Medications Home Medications: Ambulatory Orders Medication Instructions Recorded Confirmed Medical Marijuana PRN 05/05/15 09/14/15 Naproxen 375 mg PO BID #20 tablet 06/05/18 Cephalexin [Keflex] 500 mg PO Q6H #28 capsule 07/04/18 Dexamethasone [Decadron] 4 mg PO DAILY #5 tablet 07/04/18 Hydrocodone/Acetaminophen [Chandler 1 each PO Q6H PRN #15 tablet 07/04/18 5-325 Tablet] - Allergies Allergies/Adverse Reactions: Allergies Allergy/AdvReac Type Severity Reaction Status Date / Time No Known Drug Allergies Allergy Verified 07/04/18 14:23 - Social History Does the pt smoke?: No Smoking Status: Former smoker Does the pt drink ETOH?: No Does the pt have substance abuse?: No Substance Use and Type: Marijuana - Immunizations Immunizations are current?: Yes - POLST Patient has POLST: No PD ED PE NORMAL - Vitals Vital signs reviewed: Yes - General General: Alert and oriented X 3, No acute distress, Well developed/nourished - HEENT HEENT: Ears normal. No: Pharynx benign (right tonsillar area with swelling and redness, with some edema of tissue. no peritonsillar edge ) - Neck Neck: Supple, no meningeal sign, No adenopathy - Cardiac Cardiac: RRR, No murmur - Respiratory Respiratory: Clear bilaterally - Derm Derm: Normal color, Warm and dry - Neuro Neuro: Alert and oriented X 3, No motor deficit, Normal speech Results - Vitals Vitals: Oxygen O2 Source Room air - Labs Labs: Microbiology 07/04/18 14:35 Group A Strep Throat Culture - Final Throat MIXED OROPHARYNGEAL MONET PRESENT. NO BETA STREP PRESENT IN CULTURE. Laboratory Tests 07/04/18 14:35 Group A Strep Rapid Negative Departure - Departure Disposition: 01 Home, Self Care Clinical Impression: Throat pain, Peritonsillar cellulitis Condition: Stable Record reviewed to determine appropriate education?: Yes Instructions: ED Peritonsillar Infec Abx No I andD Follow-Up: DANIELLE ANGULO PA-C [Primary Care Provider] - Prescriptions: Cephalexin [Keflex] 500 mg PO Q6H #28 capsule Dexamethasone [Decadron] 4 mg PO DAILY #5 tablet Hydrocodone/Acetaminophen [Chandler 5-325 Tablet] 1 each PO Q6H PRN #15 tablet PRN Reason: Pain Comments: It does look like an infection around with the tonsil had been. This often can be bacterial. Take cephalexin antibiotic as directed for the week. Decadron steroid anti-inflammatory daily for the next several days. Add hydrocodone pain medicine if needed. Drink lots of fluids. Recheck if not improving over the next few days. Discharge Date/Time: 07/04/18 15:05
[2018-07-04 15:06] VITALS: BP 149/92
== END 2018-07-04 15:05 | disposition home or self-care (01) ==
LOC: ED 14:16
DX: J36 Peritonsillar abscess (principal); Z87.891 Personal history of nicotine dependence
CPT/HCPCS: 87070; 87430; 99283; A9270

== ENCOUNTER 2018-07-12 15:26 | Emergency (ER) | payer BC, OTHER ==
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
[2018-07-12 17:25] LABS: BILIRUBIN,URINE NEGATIVE (NEGATIVE); GLUCOSE, URINE (UA) NEGATIVE (NEGATIVE); KETONES,URINE (UA) NEGATIVE (NEGATIVE); LEUKOCYTE ESTERASE, URINE NEGATIVE (NEGATIVE); MUDS CUTOFF CONCENTRATIONS CUTOFF CONC BELOW:; NITRITE,URINE NEGATIVE (NEGATIVE); OCCULT BLOOD,URINE TRACE-LYSE (NEGATIVE); PH,URINE 5.5 PH (5.0-7.5); PROTEIN,URINE NEGATIVE (NEGATIVE); UROBILINOGEN,URINE 0.2 (NORMAL) E.U./dL (NORMAL)
[2018-07-12 17:35] LABS: CLARITY,URINE CLEAR (CLEAR); HCG UR QUAL NEGATIVE
[2018-07-12 17:36] LABS: AMPHETAMINE SCREEN,URINE NEGATIVE (NEGATIVE); BENZODIAZEPINES SCREEN, URINE NEGATIVE (NEGATIVE); COCAINE SCREEN URINE NEGATIVE (NEGATIVE); METHADONE SCREEN, URINE NEGATIVE (NEGATIVE); METHAMPHETAMINES SCREEN, URINE NEGATIVE (NEGATIVE); OPIATE SCREEN, URINE NEGATIVE (NEGATIVE); OXYCODONE SCREEN, URINE NEGATIVE (NEGATIVE); PROPOXYPHENE SCREEN, URINE NEGATIVE (NEGATIVE); TRICYCLIC ANTIDEPRESSANT,URINE NEGATIVE (NEGATIVE)
[2018-07-12] MEDS ORDERED: IBUPROFEN 600 MG TABLET PO STA (17:36)
[2018-07-12 17:47] LABS: BACTERIA,URINE Rare /HPF (None Seen); RBC,URINE 0-5 /HPF (0-5); SQUAMOUS EPITHELIAL CELL,UR FEW Squamous (<= Few)
[2018-07-12 18:46] VITALS: BP 175/89
== END 2018-07-12 18:46 | disposition home or self-care (01) ==
LOC: ED 15:26
DX: F41.9 Anxiety disorder, unspecified (principal); Z63.0 Problems in relationship with spouse or partner; I10 Essential (primary) hypertension; E11.9 Type 2 diabetes mellitus without complications; F17.200 Nicotine dependence, unspecified, uncomplicated
CPT/HCPCS: 80306; 81001; 81025; 87086; 99283

== ENCOUNTER 2018-10-13 14:44 | Emergency (ER) | payer BC, OTHER ==
[2018-10-13] MEDS ORDERED: HYDROcod/ACETAM 10 MG/325 MG TABLET PO STA (15:13)
[2018-10-13] MEDS ORDERED: diazePAM 5 MG TABLET PO STA (15:13)
--- NOTE | 2018-10-13 15:14 | ED Physician Documentation ---
PD HPI BACK PAIN - Stated complaint Stated Complaint: LOW BACK PX - Chief complaint Chief Complaint: Back Pain - Additional information Additional information: 48-year-old female with a history of chronic back pain, the patient required injection therapy in the past. The patient reports aggravating her back for several months ago and last week while walking in [place] reports increased lower back pain. The patient reports significant pain today especially with ambulation. The patient denies saddle anesthesia, motor weakness, urinary retention, hematuria, fevers, IV drug use, dialysis, diabetes, or overflow incontinence. No relief with her normal medications. No other symptoms. Review of Systems Constitutional: denies: Fever, Chills Eyes: denies: Discharge Ears: denies: Ear pain Nose: denies: Congestion Throat: denies: Sore throat Cardiac: denies: Chest pain / pressure Respiratory: denies: Cough GI: denies: Abdominal Pain Musculoskeletal: reports: Back pain. 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 : Kidney stones HEENT: None Psych: None Musculoskeletal: None Derm: None - Past Surgical History Past Surgical History: Yes General: Cholecystectomy /FOOTWEAR STITCHER: section, Hysterectomy HEENT: Tonsil/Adenoidectomy - Present Medications Home Medications: Ambulatory Orders Medication Instructions Recorded Confirmed Medical Marijuana PRN 05/05/15 09/14/15 Cephalexin [Keflex] 500 mg PO Q6H #28 capsule 07/04/18 diazePAM [Valium] 5 mg PO TID PRN #15 tablet 10/13/18 - Allergies Allergies/Adverse Reactions: Allergies Allergy/AdvReac Type Severity Reaction Status Date / Time No Known Drug Allergies Allergy Verified 07/12/18 15:38 - Social History Does the pt smoke?: Yes Smoking Status: Current every day smoker Does the pt drink ETOH?: No Does the pt have substance abuse?: Yes - Immunizations Immunizations are current?: Yes - POLST Patient has POLST: No PD ED PE NORMAL - General General: Alert and oriented X 3, Other (The patient appears quite uncomfortable) - HEENT HEENT: Atraumatic, PERRL, EOMI, Ears normal, Moist mucous membranes - Cardiac Cardiac: RRR, Strong equal pulses - Respiratory Respiratory: No respiratory distress - Back Back: Other (The patient has paraspinal tenderness in the lumbar region, there is no crepitus, no skin changes, no other acute findings there is some bony tenderness along the spinous processes) - Derm Derm: Normal color - Extremities Extremities: No deformity, Normal ROM s pain - Neuro Neuro: Alert and oriented X 3, text transcriber 2-12 intact, No motor deficit, No sensory deficit, Normal speech, Other (The patient has 5/5 muscle strength in the bilateral lower extremities, 2/4 patellar reflex and normal sensation light touch) - Psych Psych: Normal mood Results - Vitals Vitals: Vital Signs - 24 hr 10/13/18 14:54 Temperature 37.0 C Heart Rate 86 Respiratory 14 Rate Blood Pressure 129/83 H O2 Saturation 97 Oxygen O2 Source Room air - Rads (name of study) CT lumbar Radiology: Final report received, See rad report (1. No acute abnormality. 2. Mild degenerative disk disease, greatest at L3-L4, mildly progressed compared to 2015. ) PD MEDICAL DECISION MAKING - ED course ED course: On reevaluation the patient is resting comfortably, the patient's history and physical are not suggestive of acute cauda equina or epidural abscess. Pr esently the patient appears appropriate for discharge and ongoing outpatient management. Recently, I do not see indication for an emergent MRI in the emergency department. The patient will return to the emergency department for any worsening or any concerns Departure - Departure Disposition: 01 Home, Self Care Clinical Impression: Lumbar strain Qualifiers: Encounter type: initial encounter Qualified Code(s): S39.012A - Strain of muscle, fascia and tendon of lower back, initial encounter Condition: Good Instructions: ED Sprain Strain Lumbar, ED Sciatica Follow-Up: DANIELLE ANGULO PA-C [Primary Care Provider] - Within 1 week (Is ask your primary care to arrange for an outpatient referral to physical therapy to help manage her acute pain. If your symptoms are not improving you may require an outpatient MRI.) Prescriptions: diazePAM [Valium] 5 mg PO TID PRN #15 tablet PRN Reason: Spasms Comments: Please return to the emergency department for any worsening or any concerns
--- NOTE | 2018-10-13 16:00 | CT Report ---
Reason: back pain Procedure Date: 10/13/2018 Accession Number: [id number] / [id number] Procedure: CT - LUMBAR SPINE WO CPT Code: FULL RESULT: EXAM: CT LUMBAR SPINE WITHOUT CONTRAST EXAM DATE: 10/13/2018 03:40 PM. CLINICAL HISTORY: Back pain. COMPARISONS: ABDOMEN/PELVIS W/ 08/12/2014 2:13 PM. No dedicated lumbar CT comparison. TECHNIQUE: Thin-section axial images were acquired of the lumbar spine from T11 to S3 without contrast. Post-processing: Coronal and sagittal reformats. Other: None. In accordance with CT protocol optimization, one or more of the following dose reduction techniques were utilized for this exam: automated exposure control, adjustment of mA and/or KV based on patient size, or use of iterative reconstructive technique. FINDINGS: Alignment: No scoliosis or spondylolisthesis. Bones: Five [id number] lumbar vertebral bodies are present. No fractures or bone lesions. Disk Levels/Facets: Mild L3-L4 disk space narrowing is slightly increased. Very mild vertebral body spurring, greatest at L3-L4, mildly progressed. Mild L4 superior endplate invagination is without significant change. No significant facet arthropathy. No bony canal or neural foraminal stenosis. No drew disk protrusions by CT imaging. Musculature: Normal. No fatty atrophy. Other: Status post cholecystectomy. IMPRESSION: 1. No acute abnormality. 2. Mild degenerative disk disease, greatest at L3-L4, mildly progressed compared to 2014. RADIA
[2018-10-13 16:27] VITALS: BP 124/79
== END 2018-10-13 16:18 | disposition home or self-care (01) ==
LOC: ED 14:44
DX: S39.012A Strain of muscle, fascia and tendon of lower back, initial encounter (principal); X50.9XXA Other and unspecified overexertion or strenuous movements or postures, initial encounter; Y93.01 Activity, walking, marching and hiking; Y92.89 Other specified places as the place of occurrence of the external cause; I10 Essential (primary) hypertension; E11.9 Type 2 diabetes mellitus without complications; F17.200 Nicotine dependence, unspecified, uncomplicated
CPT/HCPCS: 72131; 99283; A9270

== ENCOUNTER 2019-02-01 07:27 | Outpatient (CLI) | payer BC, OTHER | END 2019-02-01 07:28 | disposition critical access hospital (66) | LOC: EMS 07:27 | PROVIDERS: ATTEND Surgery | DX: R06.02 Shortness of breath (principal); R42 Dizziness and giddiness | CPT/HCPCS: A0425; A0427 ==

== ENCOUNTER 2019-02-01 07:42 | Emergency (ER) | payer BC, OTHER ==
[2019-02-01] MEDS ORDERED: HYDROcod/ACETAM 5/325 MG TABLET PO STA (08:10)
[2019-02-01] MEDS ORDERED: DEXAMETHASONE 10 MG/ML VIAL PO STA (08:13)
[2019-02-01] MEDS ORDERED: CHERRY SYRUP 10 ML UDC PO ONE (08:13)
--- NOTE | 2019-02-01 08:15 | ED Physician Documentation ---
PD HPI DYSPNEA - Stated complaint Stated Complaint: SOA/ COUGH - Chief complaint Chief Complaint: Resp - History obtained from History obtained from: Patient - History of Present Illness Timing - onset: How many days ago (2) Timing - details: Gradual onset Associated symptoms: Cough, Chest pain / discomfort Similar symptoms before: Diagnosis (Asthma/COPD) - Additional information Additional information: The patient is a 48-year-old female with history of asthma/COPD, who presents via ambulance complaining of shortness of breath for the past 2 or 3 days. She has had cough productive of clear sputum. She denies fever or abdominal pain. She reports sore throat and mild headache. She has history of similar symptoms in the past, and uses albuterol inhaler. She continues to smoke cigarettes. Review of Systems Constitutional: denies: Fever Ears: denies: Tinnitus/ringing Nose: denies: Congestion Throat: reports: Sore throat Cardiac: reports: Chest pain / pressure ("from coughing") Respiratory: reports: Dyspnea, Cough GI: reports: Nausea. denies: Abdominal Pain, Vomiting : denies: Dysuria Skin: denies: Rash Musculoskeletal: denies: Back pain, Extremity swelling Neurologic: reports: Headache (mild). 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 : Kidney stones HEENT: None Psych: None Musculoskeletal: None Derm: None - Past Surgical History Past Surgical History: Yes General: Cholecystectomy /LACTATION SPECIALIST: section, Hysterectomy HEENT: Tonsil/Adenoidectomy - Present Medications Home Medications: Ambulatory Orders Medication Instructions Recorded Confirmed Medical Marijuana PRN 05/05/15 09/14/15 Albuterol Sulf [Ventolin Hfa 1 - 2 puffs INH Q4HR PRN #1 inhaler 02/01/19 Inhaler] Azithromycin [Zithromax] 250 mg PO DAILY #6 tablet 02/01/19 predniSONE [Prednisone] 40 mg PO DAILY #10 tablet 02/01/19 - Allergies Allergies/Adverse Reactions: Allergies Allergy/AdvReac Type Severity Reaction Status Date / Time No Known Drug Allergies Allergy Verified 02/01/19 07:56 - Social History Does the pt smoke?: Yes Smoking Status: Current every day smoker Does the pt drink ETOH?: No Does the pt have substance abuse?: Yes - Immunizations Immunizations are current?: Yes - POLST Patient has POLST: No PD ED PE NORMAL - Vitals Vital signs reviewed: Yes (hypertensive) - General General: Alert and oriented X 3, Well developed/nourished, Other (Appears distressed.) - HEENT HEENT: Atraumatic, EOMI, Pharynx benign - Neck Neck: Supple, no meningeal sign, No adenopathy, No JVD - Cardiac Cardiac: RRR - Respiratory Respiratory: Clear bilaterally - Abdomen Abdomen: Soft, Non tender - Back Back: No CVA TTP - Derm Derm: No rash - Extremities Extremities: No edema, No calf tenderness / cord - Neuro Neuro: Alert and oriented X 3, No motor deficit, Normal speech Results - Vitals Vitals: Vital Signs - 24 hr 02/01/19 07:53 Temperature 36.2 C L Heart Rate 88 Respiratory 22 Rate Blood Pressure 160/87 H O2 Saturation 96 Oxygen O2 Source Room air - Rads (name of study) CXR Radiology: Prelim report reviewed, EMP read contemporaneously, See rad report (No consolidation.) PD MEDICAL DECISION MAKING - ED course Complexity details: reviewed old records, reviewed results, re-evaluated patient, considered differential, d/w patient, d/w family ED course: The patient's presentation is most consistent with acute bronchitis. Her chest x-ray reveals no evidence of pneumonia or pneumothorax. I doubt pulmonary embolus. Treatment in the emergency department included administration of dexamethasone 10 mg orally, Zithromax 500 mg orally, and Vicodin 2 tablets orally. Her symptoms improved with the above treatment. She is being discharged with prescription for albuterol inhaler, Zithromax, and prednisone. I discussed with her and her the expected course of illness, the importance of discontinuing cigarette smoking, outpatient follow-up, as well as potentially worrisome signs or symptoms that should prompt reevaluation in the emergency department. Departure - Departure Disposition: 01 Home, Self Care Clinical Impression: Bronchitis Condition: Stable Instructions: ED Bronchitis Asthmatic Follow-Up: DANIELLE ANGULO PA-C [Primary Care Provider] - Prescriptions: Albuterol Sulf [Ventolin Hfa Inhaler] 1 - 2 puffs INH Q4HR PRN #1 inhaler PRN Reason: Shortness Of Air/Wheezing Azithromycin [Zithromax] 250 mg PO DAILY #6 tablet predniSONE [Prednisone] 40 mg PO DAILY #10 tablet Comments: You need to stop smoking cigarettes. Use albuterol inhaler as often as every 4 hours if needed for wheezing or shortness of breath. Take prednisone daily as prescribed. Take Zithromax daily as prescribed. Follow-up with your primary physician within 2 weeks. Call to schedule an appointment. Return to the emergency department if you develop increasing difficulty breathing, or otherwise worsening symptoms.
--- NOTE | 2019-02-01 09:09 | XRAY Report ---
Reason: cough and dyspnea Procedure Date: 02/01/2019 Accession Number: [id number] / [id number] Procedure: XR - Chest 2 View X-Ray CPT Code: 56605 FULL RESULT: EXAM: CHEST RADIOGRAPHY EXAM DATE: 02/01/2019 08:55 AM. CLINICAL HISTORY: Cough and dyspnea. COMPARISON: CHEST 2 VIEW PA/LAT 03/23/2017 10:12 PM. TECHNIQUE: 2 views. FINDINGS: Lungs/Pleura: No focal opacities evident. No pleural effusion. No pneumothorax. Normal volumes. Mediastinum: Atherosclerotic aortic calcification. Other: None. IMPRESSION: No consolidation. RADIA
[2019-02-01] MEDS ORDERED: AZITHROMYCIN 250 MG TABLET PO STA (09:18)
[2019-02-01 09:36] VITALS: BP 145/78
== END 2019-02-01 09:36 | disposition home or self-care (01) ==
LOC: EDUNIT# → ED 07:42
DX: J44.9 Chronic obstructive pulmonary disease, unspecified (principal); F17.210 Nicotine dependence, cigarettes, uncomplicated; I10 Essential (primary) hypertension; E11.9 Type 2 diabetes mellitus without complications
CPT/HCPCS: 71046; 99283; A9270

== ENCOUNTER 2020-03-14 04:35 | Outpatient (CLI) | payer BC, OTHER | END 2020-03-14 04:36 | disposition critical access hospital (66) | LOC: EMS 04:35 | PROVIDERS: ATTEND Surgery | DX: R10.30 Lower abdominal pain, unspecified (principal); R11.2 Nausea with vomiting, unspecified | CPT/HCPCS: A0425; A0427 ==

== ENCOUNTER 2020-03-14 04:50 | Emergency (ER) | payer BC, OTHER ==
--- NOTE | 2020-03-14 05:19 | ED Physician Documentation ---
PD HPI ABD PAIN - Stated complaint Stated Complaint: ABD PAIN, NAUSEA,VOMITING - Chief complaint Chief Complaint: Abd Pain - History obtained from History obtained from: Patient - History of Present Illness Timing - onset: Yesterday Timing - details: Gradual onset, Waxing and waning Pain level now: 5 Quality: Pain Location: Other (across lower abdomen) Improved by: Other (no ameliorating factors) Worsened by: Other (movement, palpation) Associated symptoms: Nausea, Vomiting. No: Fever, Diarrhea, Constipation Similar symptoms before: Has not had sx before Recently seen: Not recently seen - Additional information Additional information: BIBA. Patient has over 40 [facility] ED visits since 2011. c/o lower abdominal pain, across lower abdomen, since yesterday, with nausea and vomiting. Also notes generalized headache since yesterday. She has h/o gastroparesis but says this pain is different from any previous abdominal pains. Review of Systems Constitutional: denies: Fever, Chills, Sweats Cardiac: reports: Reviewed and negative Respiratory: reports: Reviewed and negative GI: reports: Abdominal Pain, Nausea, Vomiting. denies: Abdominal Swelling, Constipation, Diarrhea : denies: Dysuria, Frequency, Hematuria Skin: reports: Reviewed and negative Musculoskeletal: reports: Reviewed and negative Neurologic: reports: Headache. denies: Generalized weakness, Focal weakness, Numbness PD PAST MEDICAL HISTORY - Past Medical History Past Medical History: Yes Cardiovascular: Congestive heart failure, Hypertension, Other Respiratory: None Neuro: Migraines Endocrine/Autoimmune: Type 2 diabetes GI: GERD PAINT MIXER: None : Kidney stones HEENT: None Psych: None Musculoskeletal: None Derm: None - Past Surgical History Past Surgical History: Yes General: Cholecystectomy /PAINT MIXER: section, Hysterectomy HEENT: Tonsil/Adenoidectomy - Present Medications Home Medications: Ambulatory Orders Medication Instructions Recorded Confirmed Medical Marijuana PRN 05/05/15 09/14/15 Albuterol Sulf [Ventolin Hfa 1 - 2 puffs INH Q4HR PRN #1 inhaler 02/01/19 Inhaler] Azithromycin [Zithromax] 250 mg PO DAILY #6 tablet 02/01/19 predniSONE [Prednisone] 40 mg PO DAILY #10 tablet 02/01/19 Metoclopramide [Reglan] 10 mg PO Q6H PRN #20 tablet 03/14/20 Oxycodone HCl/Acetaminophen 1 - 2 each PO Q6H PRN #14 tablet 03/14/20 [Percocet 5-325 mg Tablet] - Allergies Allergies/Adverse Reactions: Allergies Allergy/AdvReac Type Severity Reaction Status Date / Time No Known Drug Allergies Allergy Verified 03/14/20 04:58 - Social History Does the pt smoke?: Yes Smoking Status: Current every day smoker Does the pt drink ETOH?: No Does the pt have substance abuse?: Yes - Immunizations Immunizations are current?: Yes - POLST Patient has POLST: No PD ED PE NORMAL - Vitals Vital signs reviewed: Yes - General General: Alert and oriented X 3, No acute distress, Well developed/nourished - HEENT HEENT: Moist mucous membranes - Neck Neck: Supple, no meningeal sign - Cardiac Cardiac: RRR, No murmur - Respiratory Respiratory: No respiratory distress, Clear bilaterally - Abdomen Abdomen: Soft, Non distended, Other (TTP across lower abdomen without guarding or rebound) - Back Back: No CVA TTP - Derm Derm: Normal color, Warm and dry, No rash - Extremities Extremities: No edema Results - Vitals Vitals: Vital Signs - 24 hr 03/14/20 03/14/20 03/14/20 04:56 05:29 06:05 Temperature 36.1 C L Heart Rate 89 79 78 Respiratory 17 19 17 Rate Blood Pressure 172/107 H 159/91 H O2 Saturation 98 98 98 03/14/20 03/14/20 03/14/20 06:27 06:42 08:00 Temperature Heart Rate 71 83 Respiratory 16 16 18 Rate Blood Pressure 156/96 H 130/86 H O2 Saturation 97 99 03/14/20 09:00 Temperature Heart Rate 82 Respiratory 14 Rate Blood Pressure 107/69 O2 Saturation 95 Oxygen O2 Source Room air - Labs Labs: Laboratory Tests 03/14/20 03/14/20 03/14/20 06:04 06:04 06:55 WBC 11.5 H RBC 5.27 Hgb 16.6 H Hct 48.3 H MCV 91.7 MCH 31.5 H MCHC 34.4 RDW 12.6 Plt Count 274 MPV 9.3 Neut # (Auto) 7.6 H Lymph # (Auto) 2.7 [place] # (Auto) 0.9 Eos # (Auto) 0.2 Baso # (Auto) 0.1 Absolute Nucleated RBC 0.00 Nucleated RBC % 0.0 Sodium 138 Potassium 3.5 Chloride 108 Carbon Dioxide 19 L Anion Gap 11.0 BUN 12 Creatinine 0.6 Estimated GFR (MDRD) 107 Glucose 131 H Calcium 8.1 L Total Bilirubin 0.4 AST 15 ALT 23 Alkaline Phosphatase 65 Total Protein 6.4 L Albumin 3.4 Globulin 3.0 Albumin/Globulin Ratio 1.1 Lipase 43 Urine Color YELLOW Urine Clarity CLEAR Urine pH 5.0 Ur Specific [place] 1.025 Urine Protein NEGATIVE Urine Glucose (UA) NEGATIVE Urine Ketones NEGATIVE Urine Occult Blood MODERATE H Urine Nitrite NEGATIVE Urine Bilirubin NEGATIVE Urine Urobilinogen 0.2 (NORMAL) Ur Leukocyte Esterase NEGATIVE Urine RBC 0-5 Urine WBC 0-3 Ur Squamous Epith Cells MANY Squamous H Urine Bacteria Moderate H Ur Microscopic Review INDICATED Urine Culture Comments NOT INDICATED - Rads (name of study) CT A/P Radiology: Prelim report reviewed, See rad report PD MEDICAL DECISION MAKING - ED course Complexity details: reviewed old records, reviewed results, re-evaluated patient, considered differential, d/w patient Departure - Departure Disposition: 01 Home, Self Care Clinical Impression: Gastroenteritis Condition: Good Instructions: ED Gastroenteritis Viral Follow-Up: MYLES NORMAN DO [Primary Care Provider] - Within 3 Days Prescriptions: Oxycodone HCl/Acetaminophen [Percocet 5-325 mg Tablet] 1 - 2 each PO Q6H PRN #14 tablet PRN Reason: pain Metoclopramide [Reglan] 10 mg PO Q6H PRN #20 tablet PRN Reason: Nausea / Vomiting Discharge Date/Time: 03/14/20 10:03
[2020-03-14] MEDS ORDERED: SODIUM CHLORIDE 0.9% 1,000 ML IV STA (05:53)
[2020-03-14] MEDS ORDERED: ONDANSETRON 4 MG/2 ML VIAL IVP STA (05:53)
[2020-03-14] MEDS ORDERED: MORPHINE 2 MG/ML CARPUJECT IVP STA ×2 (05:53→08:29)
[2020-03-14 06:10] LABS: BASOPHILS # (AUTO) 0.1 10^3/uL (0.0-0.1); BASOPHILS % (AUTO) 0.7 %; EOSINOPHILS # (AUTO) 0.2 10^3/uL (0.0-0.7); EOSINOPHILS % (AUTO) 1.6 %; HGB - HEMOGLOBIN 16.6 g/dL (12.0-16.0); LYMPHOCYTES # (AUTO) 2.7 10^3/uL (1.5-3.5); LYMPHOCYTES % (AUTO) 23.6 %; MEAN CORPUSCULAR HEMOGLOBIN 31.5 pg (27.0-31.0); MEAN CORPUSCULAR HGB CONC 34.4 g/dL (32.0-36.0); MEAN CORPUSCULAR VOLUME 91.7 fL (81.0-99.0); MEAN PLATELET VOLUME 9.3 fL (7.9-10.8); MONOCYTES # (AUTO) 0.9 10^3/uL (0.0-1.0); MONOCYTES % (AUTO) 7.5 %; NEUTROPHILS # (AUTO) 7.6 10^3/uL (1.5-6.6); NEUTROPHILS % (AUTO) 66.2 %; PLT - PLATELET COUNT 274 10^3/uL (130-450); RED BLOOD COUNT 5.27 10^6/uL (4.20-5.40); RED CELL DISTRIBUTION WIDTH 12.6 % (12.0-15.0); WHITE BLOOD COUNT 11.5 x10^3/uL (4.8-10.8)
[2020-03-14 06:22] LABS: ALBUMIN 3.4 g/dL (3.2-5.5); ALBUMIN/GLOBULIN RATIO 1.1 (1.0-2.2); BILIRUBIN,TOTAL 0.4 mg/dL (0.2-1.0); CALCIUM 8.1 mg/dL (8.5-10.3); CREATININE 0.6 mg/dL (0.4-1.0); TOTAL PROTEIN 6.4 g/dL (6.7-8.2)
[2020-03-14] MEDS ORDERED: IOVERSOL 320 100 ML VIAL IVP ONE ×2 (06:40→08:09)
[2020-03-14] MEDS ORDERED: IOVERSOL 320 50 ML VIAL ONE (06:41)
[2020-03-14] MEDS ORDERED: IOVERSOL 320 50 ML VIAL PO ONE (06:50)
[2020-03-14 07:03] LABS: BILIRUBIN,URINE NEGATIVE (NEGATIVE); GLUCOSE, URINE (UA) NEGATIVE (NEGATIVE); KETONES,URINE (UA) NEGATIVE (NEGATIVE); LEUKOCYTE ESTERASE, URINE NEGATIVE (NEGATIVE); NITRITE,URINE NEGATIVE (NEGATIVE); OCCULT BLOOD,URINE MODERATE (NEGATIVE); PROTEIN,URINE NEGATIVE (NEGATIVE); UROBILINOGEN,URINE 0.2 (NORMAL) E.U./dL (NORMAL)
[2020-03-14 07:09] LABS: CLARITY,URINE CLEAR (CLEAR)
[2020-03-14 07:15] LABS: BACTERIA,URINE Moderate /HPF (None Seen); RBC,URINE 0-5 /HPF (0-5); SQUAMOUS EPITHELIAL CELL,UR MANY Squamous (<= Few)
[2020-03-14] MEDS ORDERED: PROMETHAZINE INJ 25 MG in SODIUM CHLORIDE 0.9% 50 ML IV STA (08:29)
[2020-03-14] MEDS ORDERED: PROMETHAZINE 25 MG/1 ML VIAL ONE (08:38)
--- NOTE | 2020-03-14 09:41 | CT Report ---
PROCEDURE: Abdomen/Pelvis W INDICATIONS: abdominal pain CONTRAST: IV CONTRAST: Optiray 320 ml: 100 PO CONTRAST: Optiray 320 ml50 TECHNIQUE: Oral contrast was given, yet the patient was unable to keep much of it down. After the administration of 100 contrast, 5 mm thick sections acquired from the diaphragms to the symphysis. 5 mm thick vero nal and sagittal reformats were acquired. For radiation dose reduction, the following was used: aut omated exposure control, adjustment of mA and/or kV according to patient size. COMPARISON: 06/05/2018, 07/07/2017, 08/16/2016 FINDINGS: Image quality: Excellent. ABDOMEN: Lung bases: Lung bases are clear. Heart size is normal. A small hiatal hernia is incidentally note d. Solid organs: Liver and spleen are normal in size and enhancement. Diffuse fatty liver infiltration can be seen. Gallbladder has been removed Biliary system is non dilated. Pancreas enhances normal ly. No adrenal nodules. Kidneys demonstrate normal size and enhancement, without hydronephrosis. Peritoneum and bowel: Several loops of prominent small bowel bowel wall thickening can be seen withi n the midabdomen. These are best seen on coronal images, as on series 6 images 19 through 29. Bowel loops otherwise demonstrate normal wall thickness and caliber. No free fluid or air. Diverticulosi s can be seen, without drew findings of active diverticulitis. Nodes and vessels: No retroperitoneal or mesenteric adenopathy by size criteria. Aorta and inferior vena cava are normal in size. Miscellaneous: A mild fat-containing periumbilical hernia is seen. There is also a fat-containing v entral wall hernia seen inferior to the umbilicus, as on series 3 image 64. PELVIS: Genitourinary: Bladder wall thickness is normal. This patient is status post hysterectomy. No adnex al masses can be seen. Miscellaneous: No inguinal hernias or adenopathy. Bones: No suspicious bony lesions. No vertebral body compression fractures. Age-appropriate degen erative changes are seen. IMPRESSION: Several loops of thick-walled small bowel can be seen. Enteritis is suspected in this pa tient with a given history of nausea and vomiting. Diverticulosis can be seen, without drew findings of active diverticulitis. Incidental note is made of: Small hiatal hernia Fatty liver infiltration Cholecystectomy Fat-containing periumbilical hernia Lower anterior abdominal wall fat-containing hernia Hysterectomy Note: Case discussed by telephone with Note: Case discussed by telephone with Dr. Mooney at 8:39 AM [place] time on 03/14/2020. Reviewed by: Andi Fernandez MD on 03/14/2020 8:40 AM [place] Approved by: Andi Fernandez MD on 03/14/2020 8:40 AM [place] Station ID: [id number]
[2020-03-14 09:45] VITALS: BP 107/69
== END 2020-03-14 10:03 | disposition home or self-care (01) ==
LOC: EDUNIT# → ED 04:50
DX: K52.9 Noninfective gastroenteritis and colitis, unspecified (principal); R51 Headache; K42.9 Umbilical hernia without obstruction or gangrene; K43.9 Ventral hernia without obstruction or gangrene; K44.9 Diaphragmatic hernia without obstruction or gangrene; K76.0 Fatty (change of) liver, not elsewhere classified; E11.9 Type 2 diabetes mellitus without complications; I10 Essential (primary) hypertension; F17.200 Nicotine dependence, unspecified, uncomplicated
CPT/HCPCS: 36415; 74177; 80053; 81001; 83690; 85025; 96361; 96374; 96375; 96376; 99284; J7040; Q9967; 81003; 87086

== ENCOUNTER 2021-01-29 09:50 | Emergency (ER) | payer BC, OTHER ==
[2021-01-29 10:33] LABS: BASOPHILS # (AUTO) 0.1 10^3/uL (0.0-0.1); BASOPHILS % (AUTO) 0.4 %; EOSINOPHILS # (AUTO) 0.2 10^3/uL (0.0-0.7); EOSINOPHILS % (AUTO) 1.1 %; HCT - HEMATOCRIT 51.4 % (37.0-47.0); HGB - HEMOGLOBIN 17.9 g/dL (12.0-16.0); LYMPHOCYTES # (AUTO) 3.1 10^3/uL (1.5-3.5); LYMPHOCYTES % (AUTO) 21.2 %; MEAN CORPUSCULAR HEMOGLOBIN 31.2 pg (27.0-31.0); MEAN CORPUSCULAR HGB CONC 34.8 g/dL (32.0-36.0); MEAN CORPUSCULAR VOLUME 89.7 fL (81.0-99.0); MEAN PLATELET VOLUME 10.1 fL (7.9-10.8); MONOCYTES % (AUTO) 6.9 %; NEUTROPHILS # (AUTO) 10.2 10^3/uL (1.5-6.6); PLT - PLATELET COUNT 247 10^3/uL (130-450); RED BLOOD COUNT 5.73 10^6/uL (4.20-5.40); RED CELL DISTRIBUTION WIDTH 12.5 % (12.0-15.0); WHITE BLOOD COUNT 14.6 x10^3/uL (4.8-10.8)
[2021-01-29] MEDS ORDERED: DEXAMETHASONE 10 MG/ML VIAL IVP STA (10:45)
[2021-01-29] MEDS ORDERED: KETOROLAC 30 MG/ML VIAL IVP STA (10:45)
[2021-01-29] MEDS ORDERED: SODIUM CHLORIDE 0.9% 1,000 ML IV STA (10:45)
--- NOTE | 2021-01-29 10:47 | ED Physician Documentation ---
PD HPI ABD PAIN - Stated complaint Stated Complaint: CHEST/ABD PX - Chief complaint Chief Complaint: Cardiac - History obtained from History obtained from: Patient, Family - History of Present Illness Timing - onset: Last night Timing - duration: Hours Timing - details: Gradual onset, Still present Quality: Cramping, Sharp, Pain Location: Epigastric Radiation: Chest Improved by: Laying still Worsened by: Moving, Position, Palpation Associated symptoms: Diarrhea. No: Fever, Nausea, Vomiting Similar symptoms before: Diagnosis (abdominal wall strain) Recently seen: Not recently seen - Additional information Additional information: 50-year-old female with a history of reactive airway disease has presented to the emergency department this morning with abdominal pain and diarrhea that began last night. She states she had a very difficult time getting comfortable last night and she has developed some pain in her right upper chest as well that radiates into her axilla. She has been having a cough for the past 2 weeks after a visit with her grandson and this illness seemed to get slightly better and then much worse. She has had continued production of sputum now and she has developed a bit of shortness of breath and she is having coughing paroxysms. Review of Systems Constitutional: reports: Fatigue. denies: Fever Eyes: denies: Decreased vision Ears: reports: Ear pain Nose: reports: Rhinorrhea / runny nose, Congestion Throat: denies: Sore throat Cardiac: reports: Chest pain / pressure. denies: Palpitations, Pedal edema, Calf pain Respiratory: reports: Dyspnea, Cough GI: reports: Abdominal Pain, Diarrhea. 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: None : Kidney stones HEENT: None Psych: None Musculoskeletal: None Derm: None - Past Surgical History Past Surgical History: Yes General: Cholecystectomy /CHIP WASHER: section, Hysterectomy HEENT: Tonsil/Adenoidectomy - Present Medications Home Medications: Ambulatory Orders Medication Instructions Recorded Confirmed Amox/Clav 875/125 [Augmentin] 1 each PO Q12H #20 tablet 01/29/21 HYDROcod/ACETAM 5/325 [[place] 5/325] 1 - 2 tablet PO Q6H PRN #14 tablet 01/29/21 - Allergies Allergies/Adverse Reactions: Allergies Allergy/AdvReac Type Severity Reaction Status Date / Time No Known Drug Allergies Allergy Verified 01/29/21 10:10 - Social History Does the pt smoke?: Yes Smoking Status: Current every day smoker Does the pt drink ETOH?: No Does the pt have substance abuse?: Yes - Immunizations Immunizations are current?: Yes - POLST Patient has POLST: No PD ED PE NORMAL - Vitals Vital signs reviewed: Yes (Hypertensive) - General General: Alert and oriented X 3, No acute distress, Well developed/nourished - HEENT HEENT: Atraumatic, PERRL, EOMI, Pharynx benign, Other (The right TM is markedly inflamed with distortion of the landmarks the left is minimally inflamed with retained landmarks mucous membranes are dry) - Neck Neck: Supple, no meningeal sign, No bony TTP - Cardiac Cardiac: RRR, No murmur - Respiratory Respiratory: No respiratory distress, Clear bilaterally, Other (There is chest wall tenderness to the right anterior superior aspect of the chest wall and there is axillary tenderness as well without adenopathy) - Abdomen Abdomen: Normal bowel sounds, Soft, Non distended, No organomegaly, Other (Mild epigastric tenderness without guarding the patient has marked pain if she goes to sit up in the bed.) - Back Back: No CVA TTP, No spinal TTP - Derm Derm: Normal color, Warm and dry, No rash - Extremities Extremities: No deformity, No edema - Neuro Neuro: Alert and oriented X 3, material planner 2-12 intact, No motor deficit, No sensory deficit, Normal speech Eye Opening: Spontaneous Motor: Obeys Commands Verbal: Oriented GCS Score: 15 - Psych Psych: Normal mood, Normal affect Results - Vitals Vitals: Vital Signs - 24 hr 01/29/21 01/29/21 01/29/21 10:00 10:42 11:12 Temperature 36.8 C Heart Rate 86 81 78 Respiratory 19 15 15 Rate Blood Pressure 164/97 H 167/90 H 138/82 H O2 Saturation 97 96 95 01/29/21 01/29/21 01/29/21 12:00 12:30 13:00 Temperature Heart Rate 79 77 76 Respiratory 23 17 18 Rate Blood Pressure 160/102 H 156/98 H 151/100 H O2 Saturation 96 95 94 Oxygen O2 Source Room air - EKG (time done) 0954 Rhythm: LAE Intervals: RBBB Ischemia: ST depression, T wave inversion Compare to prior EKG: Unchanged from prior EKG (SPT 03-23-[address] dep and T wave inversions) Computer interpretation: Agree with computer - Labs Labs: Laboratory Tests 01/29/21 01/29/21 01/29/21 10:18 10:18 10:18 WBC 14.6 H RBC 5.73 H Hgb 17.9 H Hct 51.4 H MCV 89.7 MCH 31.2 H MCHC 34.8 RDW 12.5 Plt Count 247 MPV 10.1 Neut # (Auto) 10.2 H Lymph # (Auto) 3.1 [place] # (Auto) 1.0 Eos # (Auto) 0.2 Baso # (Auto) 0.1 Absolute Nucleated RBC 0.00 Nucleated RBC % 0.0 Sodium 133 L Potassium 4.2 Chloride 104 Carbon Dioxide 19 L Anion Gap 10.0 BUN 10 Creatinine 0.6 Estimated GFR (MDRD) 107 Glucose 124 H Calcium 9.6 Total Bilirubin 0.6 AST 15 ALT 20 Alkaline Phosphatase 64 Troponin I High Sens 5.7 Total Protein 7.5 Albumin 3.9 Globulin 3.6 Albumin/Globulin Ratio 1.1 Lipase 32 - Rads (name of study) chest Radiology: Prelim report reviewed (Impression: No acute cardiopulmonary process demonstrated radiographically.), EMP read indepedently, See rad report PD MEDICAL DECISION MAKING - ED course Complexity details: reviewed old records, reviewed results, re-evaluated patient, considered differential, d/w patient ED course: 50 y/o female with a history of type 2 diabetes and asthma has developed a cough over the past 2 weeks with a respiratory infection caught from her grandchild. This improved and then worsened and she has had a paroxysmal cough that has caused abdominal pain. She has a strain of her abdominal wall similar to what she has had previously a number of years ago. She has previously been evaluated for this similar pain with CT scan etc. with no findings. She has pain with movement especially if she goes to sit up in the bed. She has minimal tenderness on exam. I suspect her pain is related to her abdominal wall and related to strain from the cough. On examination she has otitis. This is similar to findings she has had years ago. Infection looks in very inflammatory. She has improvement in her pain with use of Toradol and she is administered intravenous saline as well. We will place the patient on a course of Augmentin and we will provide some pain medication. Departure - Departure Disposition: 01 Home, Self Care Clinical Impression: Abdominal wall strain Qualifiers: Encounter type: initial encounter Qualified Code(s): S39.011A - Strain of muscle, fascia and tendon of abdomen, initial encounter Otitis media Qualifiers: Otitis media type: suppurative Chronicity: acute Laterality: right Recurrence: recurrent Condition: Stable Instructions: ED Strain Abdominal Muscle, ED Otitis Media Acute Adult Follow-Up: MYLES NORMAN DO [Primary Care Provider] - Prescriptions: Amox/Clav 875/125 [Augmentin] 1 each PO Q12H #20 tablet HYDROcod/ACETAM 5/325 [[place] 5/325] 1 - 2 tablet PO Q6H PRN #14 tablet PRN Reason: Pain
--- NOTE | 2021-01-29 10:51 | XRAY Report ---
PROCEDURE: Chest 1 View X-Ray INDICATIONS: Chest pain TECHNIQUE: One view of the chest was acquired. COMPARISON: 02/01/2019 FINDINGS: Surgical changes and devices: None. Lungs and pleura: No pleural effusions or pneumothorax. Lungs are clear. Mediastinum: Mediastinal contours appear normal. Heart size is normal. Bones and chest wall: No suspicious bony lesions. Overlying soft tissues appear unremarkable. IMPRESSION: No acute cardiopulmonary process demonstrated radiographically. Reviewed by: Chapin Samayoa MD on 01/29/2021 10:50 AM PDT Approved by: Chapin Samayoa MD on 01/29/2021 10:50 AM PDT Station ID: [id number]
[2021-01-29 10:58] LABS: ALBUMIN 3.9 g/dL (3.2-5.5); ALBUMIN/GLOBULIN RATIO 1.1 (1.0-2.2); BILIRUBIN,TOTAL 0.6 mg/dL (0.2-1.0); CALCIUM 9.6 mg/dL (8.5-10.3); CREATININE 0.6 mg/dL (0.4-1.0); POTASSIUM 4.2 mmol/L (3.5-5.0); TOTAL PROTEIN 7.5 g/dL (6.7-8.2)
[2021-01-29] MEDS ORDERED: ONDANSETRON 4 MG/2 ML VIAL IVP STA (11:19)
[2021-01-29 13:39] VITALS: BP 152/89
== END 2021-01-29 13:56 | disposition home or self-care (01) ==
LOC: ED 09:50
DX: H66.004 Acute suppurative otitis media without spontaneous rupture of ear drum, recurrent, right ear (principal); S39.011A Strain of muscle, fascia and tendon of abdomen, initial encounter; X50.9XXA Other and unspecified overexertion or strenuous movements or postures, initial encounter; R05 Cough; I45.10 Unspecified right bundle-branch block; I10 Essential (primary) hypertension; E11.9 Type 2 diabetes mellitus without complications; J45.909 Unspecified asthma, uncomplicated; F17.200 Nicotine dependence, unspecified, uncomplicated
CPT/HCPCS: 36415; 80053; 83690; 84484; 85025; 93005; 96374; 96375; 99284

== ENCOUNTER 2021-02-14 04:29 | Outpatient (CLI) | payer BC, OTHER | END 2021-02-14 04:30 | disposition critical access hospital (66) | LOC: EMS 04:29 | DX: M54.9 Dorsalgia, unspecified (principal); R10.9 Unspecified abdominal pain | CPT/HCPCS: A0425; A0427 ==

== ENCOUNTER 2021-02-14 04:44 | Emergency (ER) | payer BC, OTHER ==
[2021-02-14] MEDS ORDERED: SODIUM CHLORIDE 0.9% 1,000 ML IV STA (04:54)
[2021-02-14] MEDS ORDERED: METOCLOPRAMIDE 10 MG/2 ML VIAL IVP STA (05:00)
[2021-02-14] MEDS ORDERED: HYDROmorphone 1 MG/ML CARPUJECT IVP STA ×2 (05:00→07:45)
[2021-02-14 05:12] LABS: GLUCOSE, URINE (UA) NEGATIVE (NEGATIVE); KETONES,URINE (UA) TRACE mg/dL (NEGATIVE); LEUKOCYTE ESTERASE, URINE MODERATE (NEGATIVE); NITRITE,URINE POSITIVE (NEGATIVE); OCCULT BLOOD,URINE LARGE (NEGATIVE); PH,URINE 5.5 PH (5.0-7.5); PROTEIN,URINE 100 mg/dL (NEGATIVE); UROBILINOGEN,URINE 1 (NORMAL) E.U./dL (NORMAL)
--- NOTE | 2021-02-14 05:20 | ED Physician Documentation ---
History of Present Illness - Stated complaint Stated Complaint: BILAT FLANK PAIN - Chief complaint Chief Complaint: Abd Pain - History obtained from History obtained from: Patient - Additonal information Additional information: 51-year-old woman with history of gastroparesis, diabetes, kidney stones, presents with bilateral flank pain over the past 48 hours, intermittent and resulting in dysuria and passage of small stone. Patient thought her symptoms resolved at that time but then had new pain come on again late this evening/early this am prompting her to call EMS. Pain is BL flanks, sharp, se shaniqua, radiating to suprapubic region, worse with urination, intermittent a/w nausea but no vomiting. denies fever. Review of Systems Ten Systems: 10 systems reviewed and negative Constitutional: denies: Fever GI: reports: Abdominal Pain, Nausea. 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 : Kidney stones HEENT: None Psych: None Musculoskeletal: None Derm: None - Past Surgical History Past Surgical History: Yes General: Cholecystectomy /CERTIFIED NUCLEAR MEDICINE TECHNOLOGIST: section, Hysterectomy HEENT: Tonsil/Adenoidectomy - Present Medications Home Medications: Ambulatory Orders Medication Instructions Recorded Confirmed Cefpodoxime Proxetil [Vantin] 100 mg PO Q12H #20 tablet 02/14/21 Ondansetron Odt [Zofran] 4 mg TL Q6H PRN #10 tablet 02/14/21 Oxycodone HCl/Acetaminophen 1 each PO Q4H PRN #10 tablet 02/14/21 [Percocet 10-325 mg Tablet] Tamsulosin [Flomax] 0.4 mg PO DAILY 14 Days #14 tab 02/14/21 - Allergies Allergies/Adverse Reactions: Allergies Allergy/AdvReac Type Severity Reaction Status Date / Time No Known Drug Allergies Allergy Verified 02/14/21 04:47 - Social History Does the pt smoke?: Yes Smoking Status: Current every day smoker Does the pt drink ETOH?: No Does the pt have substance abuse?: Yes - Immunizations Immunizations are current?: Yes - POLST Patient has POLST: No PD ED PE NORMAL - Vitals Vital signs reviewed: Yes - General General: Alert and oriented X 3, No acute distress, Well developed/nourished - HEENT HEENT: Atraumatic, PERRL, EOMI - Neck Neck: Supple, no meningeal sign - Cardiac Cardiac: RRR - Respiratory Respiratory: No respiratory distress, Clear bilaterally - Abdomen Abdomen: Non tender, Non distended, Other (Discomfort to suprapubic palpation) - Back Back: Other (Bilateral CVA tender to palpation) - Derm Derm: Normal color, Warm and dry - Extremities Extremities: No deformity - Neuro Neuro: Alert and oriented X 3 - Psych Psych: Normal mood, Normal affect Results - Vitals Vitals: Vital Signs - 24 hr 02/14/21 02/14/21 04:48 04:52 Temperature 36.9 C 36.9 C Heart Rate 89 89 Respiratory 15 15 Rate Blood Pressure 146/92 H 146/92 H O2 Saturation 95 95 Oxygen O2 Source Room air - Labs Labs: Laboratory Tests 02/14/21 02/14/21 02/14/21 05:05 05:15 05:15 WBC 19.3 H RBC 5.61 H Hgb 17.6 H Hct 51.8 H MCV 92.3 MCH 31.4 H MCHC 34.0 RDW 12.7 Plt Count 290 MPV 9.4 Neut # (Auto) 14.7 H Lymph # (Auto) 2.8 [place] # (Auto) 1.2 H Eos # (Auto) 0.3 Baso # (Auto) 0.1 Absolute Nucleated RBC 0.00 Nucleated RBC % 0.0 Sodium 135 Potassium 3.8 Chloride 104 Carbon Dioxide 22 Anion Gap 9.0 BUN 17 Creatinine 0.6 Estimated GFR (MDRD) 106 Glucose 175 H Calcium 8.7 Total Bilirubin 0.6 AST 16 ALT 23 Alkaline Phosphatase 58 Total Protein 7.2 Albumin 4.0 Globulin 3.2 Albumin/Globulin Ratio 1.3 Lipase 38 Urine Color BROWN Urine Clarity SL. CLOUDY Urine pH 5.5 Ur Specific [place] 1.025 Urine Protein 100 H Urine Glucose (UA) NEGATIVE Urine Ketones TRACE Urine Occult Blood LARGE H Urine Nitrite POSITIVE H Urine Bilirubin NEGATIVE Urine Urobilinogen 1 (NORMAL) Ur Leukocyte Esterase MODERATE H Urine RBC 11-25 H Urine WBC >25 H Ur Squamous Epith Cells NONE SEEN Urine Bacteria Few Ur Microscopic Review INDICATED Urine Culture Comments INDICATED Procedures - General procedure General procedure: [id number] ultrasound of bilateral kidneys with mild hydronephrosis. PD MEDICAL DECISION MAKING - ED course ED course: Patient presents with passage of kidney stones and likely more stones passing. No hydronephrosis on ultrasound, kidney function within normal limits, urinalysis shows infection therefore will treat. Patient will follow up outpatient urology. Return precautions given. Departure - Departure Disposition: Home, Self Care Clinical Impression: Kidney stones Condition: Good Instructions: Kidney Stones Follow-Up: Hemalatha Aviles MD [Physician No Access] - Prescriptions: Tamsulosin [Flomax] 0.4 mg PO DAILY 14 Days #14 tab Oxycodone HCl/Acetaminophen [Percocet 10-325 mg Tablet] 1 each PO Q4H PRN #10 tablet PRN Reason: Pain Cefpodoxime Proxetil [Vantin] 100 mg PO Q12H #20 tablet Ondansetron Odt [Zofran] 4 mg TL Q6H PRN #10 tablet PRN Reason: Nausea / Vomiting Comments: You were seen in the emergency department for kidney stones. Your kidney function was normal. You do have a urinary tract infection and will need antibiotics. I am glad you are feeling better. Try to stay really well-hydrated and follow-up with urology. Return if you have any new or worsening symptoms or other concerns.
[2021-02-14 05:21] LABS: BILIRUBIN,URINE NEGATIVE (NEGATIVE); CLARITY,URINE SL. CLOUDY (CLEAR); ICTOTEST,URINE NEGATIVE
[2021-02-14 05:23] LABS: BASOPHILS # (AUTO) 0.1 10^3/uL (0.0-0.1); BASOPHILS % (AUTO) 0.5 %; EOSINOPHILS # (AUTO) 0.3 10^3/uL (0.0-0.7); EOSINOPHILS % (AUTO) 1.7 %; HCT - HEMATOCRIT 51.8 % (37.0-47.0); HGB - HEMOGLOBIN 17.6 g/dL (12.0-16.0); LYMPHOCYTES # (AUTO) 2.8 10^3/uL (1.5-3.5); LYMPHOCYTES % (AUTO) 14.7 %; MEAN CORPUSCULAR HEMOGLOBIN 31.4 pg (27.0-31.0); MEAN CORPUSCULAR VOLUME 92.3 fL (81.0-99.0); MEAN PLATELET VOLUME 9.4 fL (7.9-10.8); MONOCYTES # (AUTO) 1.2 10^3/uL (0.0-1.0); MONOCYTES % (AUTO) 6.4 %; NEUTROPHILS # (AUTO) 14.7 10^3/uL (1.5-6.6); NEUTROPHILS % (AUTO) 76.2 %; PLT - PLATELET COUNT 290 10^3/uL (130-450); RED BLOOD COUNT 5.61 10^6/uL (4.20-5.40); RED CELL DISTRIBUTION WIDTH 12.7 % (12.0-15.0); WHITE BLOOD COUNT 19.3 x10^3/uL (4.8-10.8)
[2021-02-14 05:23] LABS: BACTERIA,URINE Few /HPF (None Seen); SQUAMOUS EPITHELIAL CELL,UR NONE SEEN (<= Few); WBC,URINE >25 /HPF (0-5)
[2021-02-14 05:35] LABS: ALBUMIN/GLOBULIN RATIO 1.3 (1.0-2.2); BILIRUBIN,TOTAL 0.6 mg/dL (0.2-1.0); CALCIUM 8.7 mg/dL (8.5-10.3); CREATININE 0.6 mg/dL (0.4-1.0); POTASSIUM 3.8 mmol/L (3.5-5.0); TOTAL PROTEIN 7.2 g/dL (6.7-8.2)
[2021-02-14 06:59] VITALS: BP 128/78
[2021-02-14] MEDS ORDERED: IOPAMIDOL-300 100 ML VIAL ONE (07:27)
[2021-02-14] MEDS ORDERED: KETOROLAC 30 MG/ML VIAL IVP STA (07:45)
[2021-02-14] MEDS: cefTRIAXone 1 GM VIAL IVP STA (07:57)
[2021-02-14] MEDS ORDERED: diphenhydrAMINE INJ 50 MG/ML VIAL IVP STA (08:13)
--- NOTE | 2021-02-14 08:33 | CT Report ---
PROCEDURE: Abdomen/Pelvis W INDICATIONS: B flank pain, fever CONTRAST: IV CONTRAST: Isovue 300 ml: 100 PO CONTRAST: *NO PO CONTRAST TECHNIQUE: After the administration of IV contrast, 5 mm thick sections acquired from the diaphragms to the symp hysis. 5 mm thick coronal and sagittal reformats were acquired. For radiation dose reduction, the f ollowing was used: automated exposure control, adjustment of mA and/or kV according to patient size. COMPARISON: 03/14/2020 FINDINGS: Image quality: Excellent. ABDOMEN: Lung bases: Lung bases are clear. Heart size is normal. Solid organs: Liver and spleen are normal in size and enhancement. Gallbladder has been removed. B iliary system is non dilated. Pancreas enhances normally. No adrenal nodules. Kidneys demonstrate normal size and enhancement, without hydronephrosis. Peritoneum and bowel: Prominent fluid-filled loops of small bowel are seen proximally, which measure up to 2.5 cm. There is decompressed small bowel loops seen. There is a relative transition point seen on series 6 image 34, within the right lower quadrant.. Just proximal to this transition point, ther e is equalization of small bowel contents. No significant colonic abnormality can be seen. There is m inimal sigmoid diverticulosis, without active diverticulitis. Nodes and vessels: No retroperitoneal or mesenteric adenopathy by size criteria. Aorta and inferior vena cava are normal in size. Miscellaneous: A mild fat-containing periumbilical hernia is seen. An additional fat-containing karla buccal hernia can be seen along the midline inferiorly, as on series 3 image 63. PELVIS: Genitourinary: Bladder wall thickness is normal. This patient is status post hysterectomy. No adnex al masses can be seen. Miscellaneous: No inguinal hernias or adenopathy. Bones: No suspicious bony lesions. No vertebral body compression fractures. Age-appropriate degene rative changes are seen. Minimal dextroconvex scoliotic curvature is seen. IMPRESSION: Very early small bowel obstruction, with a transition point seen within the right lower quadrant of t he abdomen. Incidental note is made of: Cholecystectomy A periumbilical hernia and a fat-containing ventral hernia inferior to the umbilicus Hysterectomy Reviewed by: Andi Fernandez MD on 02/14/2021 7:32 AM [facility] Approved by: Andi Fernandez MD on 02/14/2021 7:32 AM [facility] Station ID: [id number]
--- NOTE | 2021-02-14 08:53 | ED Physician Documentation ---
ED Addendum - Addendum Addendum: 02/14/21 08:53 51-year-old female signed out to me by Dr. Shipley awaiting the results of the CT scan for possible infected kidney stone. CT does not show any evidence of ureteral stone at this time. Patient given Rocephin here. We will place on antibiotics for home as well. Possible early small bowel obstruction on CT scan. No vomiting. Recommend a liquid diet for the next few days and see how she progresses. Patient does not want to stay in the hospital at this time. Patient is well-appearing, nontoxic. Afebrile. Patient counseled regarding signs and symptoms for which I believe and urgent re-evaluation would be necessary. Patient with good understanding of and agreement to plan and is comfortable going home at this time This document was made in part using voice recognition software. While efforts are made to proofread this document, sound alike and grammatical errors may occur. CT abdomen pelvisfinal report reviewed. Departure - Departure Disposition: Home, Self Care Clinical Impression: Small bowel obstruction UTI (urinary tract infection) Qualifiers: Urinary tract infection type: acute pyelonephritis Qualified Code(s): N10 - Acute pyelonephritis Condition: Good Instructions: ED Kidney Infec Female, Obstruction Sm Bowel Follow-Up: MYLES NORMAN DO [Primary Care Provider] - Within 1 week Prescriptions: Tamsulosin [Flomax] 0.4 mg PO DAILY 14 Days #14 tab Oxycodone HCl/Acetaminophen [Percocet 10-325 mg Tablet] 1 each PO Q4H PRN #10 tablet PRN Reason: Pain Cefpodoxime Proxetil [Vantin] 100 mg PO Q12H #20 tablet Ondansetron Odt [Zofran] 4 mg TL Q6H PRN #10 tablet PRN Reason: Nausea / Vomiting Comments: Please take all antibiotics until gone. Your CT scan does not show any kidney stones today. There could be a possible early small bowel obstruction. I would recommend a liquid diet for the next 24 to 48 hours. Also recommend following up with your doctor for further care. If you have worsening pain, vomiting, fevers, etc. please return for further evaluation. I am prescribing a short course of narcotic pain medication for you. These are potentially dangerous and addictive medications that should be used carefully. These medications may constipate you. Take an kqbq-ihm-oqfiiye stool softener (docusate) twice daily with plenty of water while taking these medications. If you go 24 hours without a bowel movement, take zeqm-zjm-hniyegl miralax, per package instructions. Do not drink or drive while taking these medications. If you received narcotic or sedating medications while in the emergency department, do not drive for 24 hours. Store this medication in a safe, secure place and out of reach of children. It is a violation of federal law to give or sell this medication to another person or to use in a manner other than prescribed. The ED will not refill narcotic prescriptions, including prescriptions lost or stolen. To dispose of unwanted medications: 1. [facility] at [address] in [place] has a medication drop box. They accept prescription medications (in pill form) Monday through Monday 9:00 a.m. to 5:00 p.m. 2. The [facility] [employer] accepts prescription medications (in pill form only) for disposal year round. Call for more information. 3. Contact the [facility] for the next [facility] sponsored prescription drug collection event. , [phone], or [phone]; You do not need to take the Flomax.
[2021-02-14] MEDS ORDERED: IOPAMIDOL-300 100 ML VIAL IVP ONE (09:23)
== END 2021-02-14 09:12 | disposition home or self-care (01) ==
LOC: EDUNIT# → ED 04:44
DX: N13.2 Hydronephrosis with renal and ureteral calculous obstruction (principal); I10 Essential (primary) hypertension; E11.9 Type 2 diabetes mellitus without complications; F17.200 Nicotine dependence, unspecified, uncomplicated
CPT/HCPCS: 36415; 74177; 80053; 81001; 83690; 85025; 87086; 96374; 96375; 96376; 99284; J1170; J1200; J2765; Q9967; 81003